=== PATIENT | male | born 1935 | race Two or more races ===

== ENCOUNTER 2016-09-29 11:42 | Inpatient (IN) | payer MEDICARE, OTHER ==
[~2016-09-29] VITALS: Ht 162.6 cm; Wt 68.0 kg
[~2016-09-29 11:42] MED LIST: ADVAIR 250-501 EACH INH; AMBIEN10 M1 ORAL; COLACE100 MG ORAL; CRESTOR10 M1 ORAL; CYCLOBENZAPRINE10 MG ORAL; DIOVAN80 MG ORAL; GABAPENTIN100 MG ORAL; INDERAL10 MG ORAL; JANUVIA100 MG ORAL; LACTULOSE20 GM/301 PO; LANTUS SOL100 UNIT/1 SUBQ; METFORMIN HCL1000 M1 ORAL; PANTOPRAZOLE SO20 MG ORAL; PRADAXA150 MG ORAL; PROAIR HFA8.5 GM INH; RAPAFLO-PATIENT'1 EA PO; TAMSULOSIN HCL0.4 MG ORAL; VICODIN 5-5001 EACH ORAL
[2016-09-29] MEDS ORDERED: PANTOPRAZOLE SO40 MG ORAL (12:16)
[2016-09-29 12:30] VITALS: BP 114/57
[2016-09-29 14:37] LABS: BASOPHILS % (AUTO) 1.5 % (0.0-2.0); EOSINOPHILS % (AUTO) 0.1 % (0.0-3.0); MEAN CORPUSCULAR HEMOGLOBIN 33.2 PG (27.0-31.0); MEAN CORPUSCULAR HGB CONC 31.9 G/DL (32.0-36.0); MEAN CORPUSCULAR VOLUME 104 FL (80-99); MEAN PLATELET VOLUME 8.1 FL (6.5-10.1); MONOCYTES % (AUTO) 6.6 % (1.0-10.0); NEUTROPHILS % (AUTO) 78.9 % (45.0-75.0); PLATELET COUNT 175 K/UL (150-450); RED BLOOD COUNT 3.01 M/UL (4.70-6.10); RED CELL DISTRIBUTION WIDTH 14.7 % (11.6-14.8); WHITE BLOOD COUNT 8.9 K/UL (4.8-10.8)
[2016-09-29 14:58] LABS: ALANINE AMINOTRANSFERASE 27 U/L (3-41); ALBUMIN/GLOBULIN RATIO 0.3 (1.0-2.7); ANION GAP 22 (5-15); ASPARTATE AMINO TRANSFERASE 58 U/L (5-40); CALCIUM 8.5 mg/dL (8.6-10.2); CARBON DIOXIDE 16 mEQ/L (20-30); CHLORIDE 94 mEQ/L (98-107); HEMOLYSIS 3; LIPASE 52 U/L (< 60); SODIUM 132 mEQ/L (135-145)
--- NOTE | 2016-09-29 15:09 | Emergency Room Report ---
History of Present Illness General Chief Complaint: Abdominal Pain Source: Patient, Family Member Present Illness HPI Patient presents with complaints of increased abdominal distention Mild increased shortness of breath Patient's son is here providing most of the input reported the patient had fluid drainage 2-3 months ago Denies any vomiting or diarrhea denies any fevers or chills He provides information that the patient has liver cancer However cannot give me the specific disease Patient and son deny any dark stools denies any recent travel or trauma Given the increased distention there were concerned and presents to the ER Allergies: Coded Allergies: No Known Allergies (Verified , 03/16/11) Patient History Past Medical History: see triage record Pertinent Family History: none Reviewed Nursing Documentation: PMH: Agreed, PSxH: Agreed Nursing Documentation-PMH Hx Cardiac Problems: Yes - ATRIAL FIBRILLATION Hx Hypertension: Yes Hx Asthma: Yes Hx COPD: Yes Hx Diabetes: Yes Hx Cancer: Yes - Liver cancer Hx Gastrointestinal Problems: Yes Hx Neurological Problems: No Review of Systems All Other Systems: negative except mentioned in HPI Physical Exam Vital Signs Date Time Temp Pulse Resp B/P Pulse Ox O2 Delivery O2 Flow Rate FiO2 09/29/16 12:06 95.5 86 16 82/52 98 Room Air Sp02 EP Interpretation: reviewed, normal General Appearance: no apparent distress Head: normocephalic, atraumatic Eyes: bilateral eye EOMI, bilateral eye PERRL ENT: hearing grossly normal, normal pharynx, TMs + canals normal, uvula midline Neck: full range of motion, supple, no meningismus, no bony tend Respiratory: no rhonchi, no respiratory distress, no retraction, no accessory muscle use, crackles - in lower lobes Cardiovascular #1: normal peripheral pulses, regular rate, rhythm, no gallop, no JVD, no murmur Gastrointestinal: non tender, no mass, no guarding, no hernia, no pulsatile mass, no rebound, other - Evidence of ascites Genitourinary: no CVA tenderness Musculoskeletal: normal inspection Neurologic: oriented x3, responsive, aerial photographer III-XII nml as tested, motor strength/ tone normal, sensory intact Psychiatric: mood/affect normal Skin: no rash, warm/dry, palpation normal Lymphatic: normal inspection, no adenopathy Medical Decision Making Diagnostic Impression: Primary Impression: Liver masses Additional Impressions: Cirrhosis, alcoholic Renal insufficiency ER Course Patient appears to have 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 There is evidence of increased ascites patient is somewhat symptomatic with this Ultrasound-guided paracentesis was ordered upon arrival Patient continues to saturate well and at this time requires admission for further care Patient's kidney function appears to have significantly worsened with increased potassium And BUN and creatinine Labs Test 09/29/16 14:20 White Blood Count 8.9 K/UL (4.8-10.8) Red Blood Count 3.01 M/UL (4.70-6.10) Hemoglobin 10.0 G/DL (14.2-18.0) Hematocrit 31.3 % (42.0-52.0) Mean Corpuscular Volume 104 FL (80-99) Mean Corpuscular Hemoglobin 33.2 PG (27.0-31.0) Mean Corpuscular Hemoglobin Concent 31.9 G/DL (32.0-36.0) Red Cell Distribution Width 14.7 % (11.6-14.8) Platelet Count 175 K/UL (150-450) Mean Platelet Volume 8.1 FL (6.5-10.1) Neutrophils (%) (Auto) 78.9 % (45.0-75.0) Lymphocytes (%) (Auto) 13.0 % (20.0-45.0) Monocytes (%) (Auto) 6.6 % (1.0-10.0) Eosinophils (%) (Auto) 0.1 % (0.0-3.0) Basophils (%) (Auto) 1.5 % (0.0-2.0) Sodium Level 132 mEQ/L (135-145) Potassium Level 5.0 mEQ/L (3.4-4.9) Chloride Level 94 mEQ/L (98-107) Carbon Dioxide Level 16 mEQ/L (20-30) Anion Gap 22 (5-15) Blood Urea Nitrogen 83 mg/dL (7-23) Creatinine 4.0 mg/dL (0.7-1.2) Estimat Glomerular Filtration Rate mL/min (>60) Glucose Level 119 mg/dL (74-106) Calcium Level 8.5 mg/dL (8.6-10.2) Total Bilirubin 2.3 mg/dL (0.0-1.2) Aspartate Amino Transf (AST/SGOT) 58 U/L (5-40) Alanine Aminotransferase (ALT/SGPT) 27 U/L (3-41) Alkaline Phosphatase 255 U/L (40-129) Total Protein 8.0 g/dL (6.6-8.7) Albumin 1.9 g/dL (3.5-5.2) Globulin 6.1 g/dL Albumin/Globulin Ratio 0.3 (1.0-2.7) Lipase 52 U/L (< 60) Rhythm Strip Diag. Results EP Interpretation: yes Rate: 77 Rhythm: NSR, no PVC's, no ectopy Chest X-Ray Diagnostic Results EP Interpretation: Yes Findings: no consolidation, no effusion, no pneumothorax Number of Views: 1 Last Vital Signs Date Time Temp Pulse Resp B/P Pulse Ox O2 Delivery O2 Flow Rate FiO2 09/29/16 12:30 98.0 80 16 114/57 98 Room Air Status: improved Disposition: ADMITTED INPATIENT Condition: Serious Referrals: NON PHYSICIAN (PCP) Additional Instructions: Please note that this report is being documented using [employer] technology. This can lead to erroneous entry secondary to incorrect interpretation by the dictating instrument. SIRI STERN D.O. Sep 29, 2016 15:09
[2016-09-29 15:13] LABS: BILIRUBIN,DIRECT 1.4 mg/dL (0.1-0.3)
[2016-09-29] MEDS ORDERED: Sodium Polystyrene Sulfonate 15gm Powder ORAL ONE (15:15)
[2016-09-29 15:16] LABS: INR 1.3 (0.9-1.1); PROTHROMBIN TIME 13.4 SEC (9.30-11.50)
--- NOTE | 2016-09-29 15:26 | History & Physical ---
History and Physical History & Physicial Case was discussed with ER physician. chart was reviewed. Pt is getting a paracentesis. full note will follow. Orders were put in the computer. MASON REECE Sep 29, 2016 15:26
[2016-09-29 15:47] VITALS: BP 104/68
[2016-09-29 17:00] VITALS: BP 73/54
[2016-09-29] MEDS ORDERED: Mylanta II UD 30ml ORAL PRN (17:30)
[2016-09-29] MEDS ORDERED: Zolpidem 5mg tab ORAL PRN (17:30)
[2016-09-29] MEDS ORDERED: Norco 5mg/325mg tab ORAL PRN (17:30)
[2016-09-29] MEDS ORDERED: Milk of Magnesia 30ml Ud ORAL PRN (17:30)
[2016-09-29] MEDS: Docusate 100mg cap ORAL SCH (18:12)
[2016-09-29 19:00] VITALS: BP 110/66
[2016-09-29 20:44] LABS: APPEARANCE, BODY FLUID HAZY; BD FL SOURCE PARACENTESIS; BD FL VOLUME 24 mL
[2016-09-29 20:45] LABS: BODY FLUID NUCLEATED CELLS 56 /CUMM; BODY FLUID RBC 300 /CUMM; MONONUCLEAR WBC 53 %; POLYMORPHONUCLEAR WBC 44 %
[2016-09-29] MEDS: Tamsulosin 0.4mg cap ORAL SCH (21:00)
[2016-09-29] MEDS: NovoLOG Insulin Flexpen SUBQ SCH (21:00)
[2016-09-29] MEDS: Propranolol 10mg tab ORAL SCH (21:51)
--- NOTE | 2016-09-29 23:49 | History and Physical Report ---
DATE OF ADMISSION: 09/29/2016 HISTORY OF PRESENT ILLNESS: The patient is an unfortunate 81-year-old male with history of hepatocellular carcinoma, history of cirrhosis, and history of ascites who presented to the emergency room with complaints of increased abdominal girth occurring over the past week and increased shortness of breath as a result. He denies any chest pain. No cough. No fevers or chills. The patient resides at home. His son is his caregiver. The patient has had difficulty walking over the past week. PAST MEDICAL HISTORY: History of cirrhosis, history of hemorrhoids, history of colonic polyps, history of atrial fibrillation, history of diabetes, history of BPH, and history of hypertension. ALLERGIES: No known. FAMILY HISTORY: No history of liver cancer in the family. SOCIAL HISTORY: The patient used to be a smoker and also drank alcohol. Denies any drug use. REVIEW OF SYSTEMS: No headaches. No sore throat. He admits to decreased appetite, generalized weakness, fatigue, and difficulty ambulating over the past week. Further review of systems as per above. PHYSICAL EXAMINATION: GENERAL: He is an elderly chronically ill-appearing, currently in no apparent distress. VITAL SIGNS: Blood pressure 114/57, respirations 16, temperature 98, and room air saturations 98%. HEENT: Head is normocephalic and atraumatic. Pupils are equal and reactive to light. Extraocular muscles are intact. Conjunctiva slightly pale. Throat, mucous membranes are dry. LUNGS: Clear to auscultation. HEART: Irregularly irregular. ABDOMEN: Distended. Positive bowel sounds. EXTREMITIES: No clubbing, cyanosis, or edema. LABORATORY DATA: Sodium 132, potassium 5.0, chloride 94, BUN 83, creatinine 4.0, glucose 119, total bilirubin 2.3, and direct 1.4. AST ____, ALT of 27, alkaline phosphatase 255, and albumin 1.9. White count 8.9, hemoglobin 10, hematocrit 31.3, and platelet count 175,000. INR 1.2 and PTT is 32. ASSESSMENT AND PLAN: The patient is an unfortunate 81-year-old male with hepatocellular carcinoma, cirrhosis, and ascites presents with increased abdominal girth, difficulty ambulating, some shortness of breath, also had renal failure. The patient will be admitted. He will need to undergo paracentesis. Gastrointestinal consultation requested from Dr. Galvan, covering for Dr. Rivera. Nephrology consultation has been requested from ____. We will also get lower extremity Dopplers on him. Placed him on SCDs for now. The patient should be on DVT and ulcer prophylaxis. Jeff Lockhart M.D. DR: BARBY JOB#: [id number] CC:
[2016-09-30] VITALS (10 sets, daily range): BP systolic 77–126; BP diastolic 44–82
[2016-09-30] MEDS: Propranolol 10mg tab ORAL SCH ×3 (05:59→22:00)
[2016-09-30] MEDS: NovoLOG Insulin Flexpen SUBQ SCH ×4 (06:30→20:50)
[2016-09-30 07:36] LABS: BASOPHILS % (AUTO) 0.8 % (0.0-2.0); EOSINOPHILS % (AUTO) 0.1 % (0.0-3.0); LYMPHOCYTES % (AUTO) 8.6 % (20.0-45.0); MEAN CORPUSCULAR HEMOGLOBIN 33.5 PG (27.0-31.0); MEAN CORPUSCULAR HGB CONC 31.8 G/DL (32.0-36.0); MEAN CORPUSCULAR VOLUME 106 FL (80-99); MEAN PLATELET VOLUME 7.9 FL (6.5-10.1); MONOCYTES % (AUTO) 8.6 % (1.0-10.0); NEUTROPHILS % (AUTO) 81.9 % (45.0-75.0); PLATELET COUNT 161 K/UL (150-450); RED BLOOD COUNT 3.01 M/UL (4.70-6.10); RED CELL DISTRIBUTION WIDTH 14.7 % (11.6-14.8); WHITE BLOOD COUNT 9.5 K/UL (4.8-10.8)
[2016-09-30 07:55] LABS: INR 1.4 (0.9-1.1); PROTHROMBIN TIME 13.9 SEC (9.30-11.50)
[2016-09-30 08:00] LABS: ANION GAP 20 (5-15); CARBON DIOXIDE 17 mEQ/L (20-30); CHLORIDE 96 mEQ/L (98-107); CREATININE 4.3 mg/dL (0.7-1.2); HEMOLYSIS 2; PHOSPHORUS 7.2 mg/dL (2.5-4.8); POTASSIUM 5.1 mEQ/L (3.4-4.9); SODIUM 133 mEQ/L (135-145)
[2016-09-30] MEDS: Docusate 100mg cap ORAL SCH ×2 (08:47→18:00)
[2016-09-30] MEDS ORDERED: NS 250 ML IVPB ONE (11:00)
[2016-09-30] MEDS ORDERED: NS 250 ML IVPB SCH (11:45)
--- NOTE | 2016-09-30 11:53 | Diagnostic Imaging Report ---
Indication: Chest pain Technique: XRAY CHEST 1 V Comparison: 08/08/16 Findings: Cardiomediastinal silhouette is stable. 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 There is no consolidation or pleural effusion. The osseous structures are stable. Impression: No acute cardiopulmonary disease.
--- NOTE | 2016-09-30 12:32 | Consultation ---
History of Present Illness General Date patient seen: Sep 30, 2016 Chief Complaint: Abdominal Pain Referring physician: Dr. OLIVEIRA Reason for Consultation: dypsnea Present Illness HPI 81 Year old male with hx of Hepatocellular cancer, liver cirrhosis, presented to [facility] with increased abdominal girth, dyspnea Patient's son was in ER providing most of the input, reported the patient had fluid drainage 2-3 months ago Denies any vomiting or diarrhea denies any fevers or chills. Pt is admitted for symptomatic treatment. I was asked to optimize his respiratory status. Allergies: Coded Allergies: No Known Allergies (Verified , 03/16/11) Medication History Scheduled Albuterol Sulfate* (Proair Hfa*), 1 PUFF INH Q6H, (Reported) Cyclobenzaprine Hcl* (Flexeril*), 10 MG ORAL THREE TIMES A DAY, (Reported) Fluticasone/Salmeterol (Advair 250-50 Diskus), 1 PUFF INH EVERY 12 HOURS, ( Reported) Gabapentin* (Gabapentin*), 300 MG ORAL BID, (Reported) Insulin Glargine (Lantus), 20 SUBQ BID, (Reported) Pantoprazole (Pantoprazole), 20 MG ORAL EVERY 12 HOURS Pantoprazole* (Pantoprazole*), 40 MG ORAL DAILY, (Reported) Propranolol HCl (Propranolol HCl), 10 MG ORAL Q8HR Silodusin (Rapaflo), 4 MG PO DAILY, (Reported) Tamsulosin Hcl (Tamsulosin Hcl*), 0.4 MG ORAL BEDTIME, (Reported) Scheduled PRN Zolpidem Tartrate* (Ambien*), 10 MG ORAL HS PRN for Insomnia, (Reported) Patient History Healthcare decision maker Resuscitation status Advanced Directive on File Past Medical/Surgical History Past Medical/Surgical History: (1) Cirrhosis, alcoholic (2) Liver masses Review of Systems All Other Systems: negative except mentioned in HPI Physical Exam General Appearance: WD/WN Lines, tubes and drains: peripheral, central line HEENT: normocephalic Neck: non-tender, normal alignment Respiratory/Chest: chest wall non-tender, normal breath sounds Cardiovascular/Chest: normal peripheral pulses, normal rate Abdomen: normal bowel sounds, non tender Genitourinary/Rectal: normal genital exam, normal rectal exam Last 24 Hour Vital Signs Date Time Temp Pulse Resp B/P Pulse Ox O2 Delivery O2 Flow Rate FiO2 09/30/16 11:36 97.6 96 20 84/52 95 Room Air 09/30/16 07:44 97.5 59 20 91/47 96 Room Air 09/30/16 05:59 85 93/49 09/30/16 05:00 93/51 09/30/16 04:00 96.0 85 20 93/49 95 Room Air 09/30/16 01:00 90/54 09/30/16 00:00 95.5 85 20 83/55 93 Room Air 09/29/16 22:48 98.0 09/29/16 21:51 77 110/66 09/29/16 19:00 98.0 77 18 110/66 98 Room Air 09/29/16 17:00 96.0 89 20 73/54 98 Room Air 89 09/29/16 16:36 98.0 80 16 104/68 98 Room Air 79 09/29/16 15:47 98.0 79 16 104/68 98 Room Air 09/29/16 12:30 98.0 80 16 114/57 98 Room Air Intake and Output 09/29/16 09/30/16 18:59 06:59 Intake Total 1060 ml Balance 1060 ml Intake Oral 60 ml IV Total 1000 ml # Voids 1 4 # Bowel Movements 2 Laboratory Tests Test 09/29/16 14:20 09/29/16 16:53 09/30/16 06:20 White Blood Count 8.9 K/UL (4.8-10.8) 9.5 K/UL (4.8-10.8) Red Blood Count 3.01 M/UL (4.70-6.10) L 3.01 M/UL (4.70-6.10) L Hemoglobin 10.0 G/DL (14.2-18.0) L 10.1 G/DL (14.2-18.0) L Hematocrit 31.3 % (42.0-52.0) L 31.7 % (42.0-52.0) L Mean Corpuscular Volume 104 FL (80-99) H 106 FL (80-99) H Mean Corpuscular Hemoglobin 33.2 PG (27.0-31.0) H 33.5 PG (27.0-31.0) H Mean Corpuscular Hemoglobin Concent 31.9 G/DL (32.0-36.0) L 31.8 G/DL (32.0-36.0) L Red Cell Distribution Width 14.7 % (11.6-14.8) 14.7 % (11.6-14.8) Platelet Count 175 K/UL (150-450) 161 K/UL (150-450) Mean Platelet Volume 8.1 FL (6.5-10.1) 7.9 FL (6.5-10.1) Neutrophils (%) (Auto) 78.9 % (45.0-75.0) H 81.9 % (45.0-75.0) H Lymphocytes (%) (Auto) 13.0 % (20.0-45.0) L 8.6 % (20.0-45.0) L Monocytes (%) (Auto) 6.6 % (1.0-10.0) 8.6 % (1.0-10.0) Eosinophils (%) (Auto) 0.1 % (0.0-3.0) 0.1 % (0.0-3.0) Basophils (%) (Auto) 1.5 % (0.0-2.0) 0.8 % (0.0-2.0) Prothrombin Time 13.4 SEC (9.30-11.50) H 13.9 SEC (9.30-11.50) H Prothromb Time International Ratio 1.3 (0.9-1.1) H 1.4 (0.9-1.1) H Activated Partial Thromboplast Time 32 SEC (23-33) 36 SEC (23-33) H Sodium Level 132 mEQ/L (135-145) L 133 mEQ/L (135-145) L Potassium Level 5.0 mEQ/L (3.4-4.9) H 5.1 mEQ/L (3.4-4.9) H Chloride Level 94 mEQ/L (98-107) L 96 mEQ/L (98-107) L Carbon Dioxide Level 16 mEQ/L (20-30) L 17 mEQ/L (20-30) L Anion Gap 22 (5-15) H 20 (5-15) H Blood Urea Nitrogen 83 mg/dL (7-23) H 86 mg/dL (7-23) H Creatinine 4.0 mg/dL (0.7-1.2) H 4.3 mg/dL (0.7-1.2) H Estimat Glomerular Filtration Rate mL/min (>60) mL/min (>60) Glucose Level 119 mg/dL (74-106) H 115 mg/dL (74-106) H Calcium Level 8.5 mg/dL (8.6-10.2) L 8.0 mg/dL (8.6-10.2) L Total Bilirubin 2.3 mg/dL (0.0-1.2) H Direct Bilirubin 1.4 mg/dL (0.1-0.3) H Aspartate Amino Transf (AST/SGOT) 58 U/L (5-40) H Alanine Aminotransferase (ALT/SGPT) 27 U/L (3-41) Alkaline Phosphatase 255 U/L (40-129) H Total Protein 8.0 g/dL (6.6-8.7) Albumin 1.9 g/dL (3.5-5.2) L Globulin 6.1 g/dL Albumin/Globulin Ratio 0.3 (1.0-2.7) L Lipase 52 U/L (< 60) Body Fluid Source Paracentesis Body Fluid Volume 24 mL Body Fluid Appearance Hazy Body Fluid RBC 300 /CUMM Body Fluid Total Nucleated Cells 56 /CUMM Body Fluid Polynuclear WBCs (%) 44 % Body Fluid Mononuclear WBCs (%) 53 % Body Fluid Mesothelial Cells (%) 3 % Body Fluid Total Protein Pending Body Fluid Albumin Pending Phosphorus Level 7.2 mg/dL (2.5-4.8) H Magnesium Level 2.5 mg/dL (1.7-2.5) Ammonia 41 umol/L (16-60) Thyroid Stimulating Hormone (TSH) 3.520 uIU/mL (0.300-4.500) Height (Feet): 5 Height (Inches): 4.00 Weight (Pounds): 150 Medications Current Medications Medications (Trade) Dose Ordered Sig/Garcia Route PRN Reason Start Time Stop Time Status Last Admin Dose Admin Acetaminophen (Tylenol) 650 mg Q6H PRN ORAL Mild Pain/Temp > 100.5 09/29/16 17:30 10/29/16 17:29 Acetaminophen/ Hydrocodone Bitart ([place] 5/325) 1 tab Q6H PRN ORAL Moderate Pain (Pain Scale 4-6) 09/29/16 17:30 10/06/16 17:29 09/29/16 21:46 Al Hydroxide/Mg Hydroxide (Mylanta II) 30 ml DAILYPRN PRN ORAL DYSPEPsia 09/29/16 17:30 10/29/16 17:29 Dextrose (Dextrose 50%) STAT PRN IV Hypoglycemia 09/29/16 17:30 10/29/16 17:29 Docusate Sodium (Colace) 100 mg TWICE A DAY ORAL 09/29/16 18:00 10/29/16 17:59 09/30/16 08:47 Insulin Aspart (NovoLOG) BEFORE MEALS AND HS SUBQ 09/29/16 21:00 10/29/16 20:59 09/30/16 11:46 Magnesium Hydroxide (Mom) 30 ml DAILYPRN PRN ORAL Constipation 09/29/16 17:30 10/29/16 17:29 Propranolol HCl 10 mg 10 mg Q8HR ORAL 09/29/16 22:00 10/29/16 21:59 Sodium Chloride (Sodium Chloride) 250 ml @ 998.89 mls/ hr ONCE IVPB 09/30/16 11:45 10/30/16 11:44 09/30/16 11:44 Tamsulosin HCl (Flomax) 0.4 mg BEDTIME ORAL 09/29/16 21:00 10/29/16 20:59 Zolpidem Tartrate (Ambien) 5 mg HSPRN PRN ORAL Insomnia 09/29/16 17:30 10/29/16 17:29 Assessment/Plan Problem List: (1) Dyspnea ICD Codes: R06.00 - Dyspnea, unspecified SNOMED: 099107570 (2) Cancer, hepatocellular ICD Codes: C22.0 - Liver cell carcinoma SNOMED: 28430871, 443056553, 316556601 (3) Ascites ICD Codes: R18.8 - Other ascites SNOMED: 968577710 (4) ATN (acute tubular necrosis) ICD Codes: N17.0 - Acute kidney failure with tubular necrosis SNOMED: 53356852 (5) Coagulopathy ICD Codes: D68.9 - Coagulation defect, unspecified SNOMED: 65390780 Assessment/Plan paracentesis, done yesterd, 7 liter removed respiratory treatment iv fluids check electrolytes Vitamin K consider DNR and hospice care MONTEZ CAN Sep 30, 2016 12:32
[2016-09-30] MEDS: DuoNeb 0.5-3(2.5)mg/3ml neb HHN SCH ×2 (13:20→19:27)
[2016-09-30] MEDS ORDERED: Phytonadione 10 MG in D5W 55 ML IVPB ONE (13:30)
--- NOTE | 2016-09-30 14:36 | Nephrology Progress Note ---
Assessment/Plan Problem List: (1) Renal insufficiency Assessment: no change (2) Anemia (3) Cancer, hepatocellular (4) Ascites Plan Urine studies (not done) IVF follow BMP Discussed with RN Subjective Subjective feels better Objective Objective Last 24 Hour Vital Signs Date Time Temp Pulse Resp B/P Pulse Ox O2 Delivery O2 Flow Rate FiO2 09/30/16 13:29 84 20 95/56 09/30/16 12:32 112 20 90/54 95 Nasal Cannula 09/30/16 11:36 97.6 96 20 84/52 95 Room Air 09/30/16 07:44 97.5 59 20 91/47 96 Room Air 09/30/16 05:59 85 93/49 09/30/16 05:00 93/51 09/30/16 04:00 96.0 85 20 93/49 95 Room Air 09/30/16 01:00 90/54 09/30/16 00:00 95.5 85 20 83/55 93 Room Air 09/29/16 22:48 98.0 09/29/16 21:51 77 110/66 09/29/16 19:00 98.0 77 18 110/66 98 Room Air 09/29/16 17:00 96.0 89 20 73/54 98 Room Air 89 09/29/16 16:36 98.0 80 16 104/68 98 Room Air 79 09/29/16 15:47 98.0 79 16 104/68 98 Room Air Intake and Output 09/29/16 09/30/16 19:00 07:00 Intake Total 250 ml 810 ml Balance 250 ml 810 ml Intake Oral 60 ml IV Total 250 ml 750 ml # Voids 1 4 # Bowel Movements 2 Laboratory Tests 09/29/16 16:53: Body Fluid Source Paracentesis, Body Fluid Volume 24, Body Fluid Appearance Hazy , Body Fluid RBC 300, Body Fluid Total Nucleated Cells 56, Body Fluid Polynuclear WBCs (%) 44, Body Fluid Mononuclear WBCs (%) 53, Body Fluid Mesothelial Cells (%) 3, Body Fluid Total Protein [Pending], Body Fluid Albumin [Pending] 09/30/16 06:20: White Blood Count 9.5, Red Blood Count 3.01L, Hemoglobin 10.1L, Hematocrit 31.7L , Mean Corpuscular Volume 106H, Mean Corpuscular Hemoglobin 33.5H, Mean Corpuscular Hemoglobin Concent 31.8L, Red Cell Distribution Width 14.7, Platelet Count 161, Mean Platelet Volume 7.9, Neutrophils (%) (Auto) 81.9H, Lymphocytes (%) (Auto) 8.6L, Monocytes (%) (Auto) 8.6, Eosinophils (%) (Auto) 0.1, Basophils (%) (Auto) 0.8, Prothrombin Time 13.9H, Prothromb Time International Ratio 1.4H, Activated Partial Thromboplast Time 36H, Sodium Level 133L, Potassium Level 5.1H, Chloride Level 96L, Carbon Dioxide Level 17L, Anion Gap 20H, Blood Urea Nitrogen 86H, Creatinine 4.3H, Estimat Glomerular Filtration Rate , Glucose Level 115H, Calcium Level 8.0L, Phosphorus Level 7.2H , Magnesium Level 2.5, Ammonia 41, Thyroid Stimulating Hormone (TSH) 3.520 Height (Feet): 5 Height (Inches): 4.00 Weight (Pounds): 150 Cardiovascular: normal rate Respiratory/Chest: lungs clear Extremities: other - no edema MASON REECE Sep 30, 2016 14:36
[2016-09-30 18:07] LABS: PROTEIN, BODY FLUID 1.1 g/dL (.)
--- NOTE | 2016-09-30 19:54 | General Progress Note ---
Assessment/Plan Assessment/Plan HCC ascites renal failure hypotension sob htn ho afib sp paracentesis montior renal parameters,? azotemia nephrology fup will get cxr, have pulmonary see patient dvt ulcer porhylaxis PT eval ambulate will likely need snf Subjective Allergies: Coded Allergies: No Known Allergies (Verified , 03/16/11) Subjective sp paracentesis 7 liter removed more comfortabl some sob no cp Objective Last 24 Hour Vital Signs Date Time Temp Pulse Resp B/P Pulse Ox O2 Delivery O2 Flow Rate FiO2 09/30/16 19:30 101 18 100 Room Air 09/30/16 19:22 106 18 Room Air 09/30/16 19:20 96 18 96 Room Air 09/30/16 16:00 97.6 72 19 126/82 100 09/30/16 14:37 91 16 100 Room Air 09/30/16 13:29 84 20 95/56 09/30/16 13:20 89 16 Room Air 21 09/30/16 12:32 112 20 90/54 95 Nasal Cannula 09/30/16 11:36 97.6 96 20 84/52 95 Room Air 09/30/16 07:44 97.5 59 20 91/47 96 Room Air 09/30/16 05:59 85 93/49 09/30/16 05:00 93/51 09/30/16 04:00 96.0 85 20 93/49 95 Room Air 09/30/16 01:00 90/54 09/30/16 00:00 95.5 85 20 83/55 93 Room Air 09/29/16 22:48 98.0 09/29/16 21:51 77 110/66 Intake and Output 09/29/16 09/30/16 19:00 07:00 Intake Total 250 ml 810 ml Balance 250 ml 810 ml Intake Oral 60 ml IV Total 250 ml 750 ml # Voids 1 4 # Bowel Movements 2 Laboratory Tests 09/30/16 06:20: White Blood Count 9.5, Red Blood Count 3.01L, Hemoglobin 10.1L, Hematocrit 31.7L , Mean Corpuscular Volume 106H, Mean Corpuscular Hemoglobin 33.5H, Mean Corpuscular Hemoglobin Concent 31.8L, Red Cell Distribution Width 14.7, Platelet Count 161, Mean Platelet Volume 7.9, Neutrophils (%) (Auto) 81.9H, Lymphocytes (%) (Auto) 8.6L, Monocytes (%) (Auto) 8.6, Eosinophils (%) (Auto) 0.1, Basophils (%) (Auto) 0.8, Prothrombin Time 13.9H, Prothromb Time International Ratio 1.4H, Activated Partial Thromboplast Time 36H, Sodium Level 133L, Potassium Level 5.1H, Chloride Level 96L, Carbon Dioxide Level 17L, Anion Gap 20H, Blood Urea Nitrogen 86H, Creatinine 4.3H, Estimat Glomerular Filtration Rate , Glucose Level 115H, Plasma/Serum Osmolality [Pending], Calcium Level 8.0L, Phosphorus Level 7.2H, Magnesium Level 2.5, Ammonia 41, Thyroid Stimulating Hormone (TSH) 3.520, Cortisol [Pending] Height (Feet): 5 Height (Inches): 4.00 Weight (Pounds): 150 Neck: supple Cardiovascular: normal rate Respiratory/Chest: decreased breath sounds Abdomen: soft Edema: no edema noted Arm (L), no edema noted Arm (R), no edema noted Leg (L), no edema noted Leg (R), no edema noted Pedal (L), no edema noted Pedal (R), no edema noted Generalized Objective abdomen soft distended pos bs pos ascited but improved CHAPIS OLIVEIRA Sep 30, 2016 19:54
[2016-09-30] MEDS ORDERED: NS 100 ML IVPB ONE (20:15)
[2016-09-30] MEDS: Tamsulosin 0.4mg cap ORAL SCH (20:43)
[2016-09-30] MEDS ORDERED: Midodrine 10mg tab ORAL SCH (21:00)
--- NOTE | 2016-09-30 21:10 | General Progress Note ---
Assessment/Plan Assessment/Plan Assessment - multifocal HCC - Ascites - Cirrhosis - Renal failure - Poor Px Recommendations - PRN paracentesis - Agree with SNF - Code status Subjective Allergies: Coded Allergies: No Known Allergies (Verified , 03/16/11) Objective Last 24 Hour Vital Signs Date Time Temp Pulse Resp B/P Pulse Ox O2 Delivery O2 Flow Rate FiO2 09/30/16 19:30 101 18 100 Room Air 09/30/16 19:22 106 18 Room Air 09/30/16 19:20 96 18 96 Room Air 09/30/16 16:00 97.6 72 19 126/82 100 09/30/16 14:37 91 16 100 Room Air 09/30/16 13:29 84 20 95/56 09/30/16 13:20 89 16 Room Air 21 09/30/16 12:32 112 20 90/54 95 Nasal Cannula 09/30/16 11:36 97.6 96 20 84/52 95 Room Air 09/30/16 07:44 97.5 59 20 91/47 96 Room Air 09/30/16 05:59 85 93/49 09/30/16 05:00 93/51 09/30/16 04:00 96.0 85 20 93/49 95 Room Air 09/30/16 01:00 90/54 09/30/16 00:00 95.5 85 20 83/55 93 Room Air 09/29/16 22:48 98.0 09/29/16 21:51 77 110/66 Intake and Output 09/29/16 09/30/16 19:00 07:00 Intake Total 250 ml 810 ml Balance 250 ml 810 ml Intake Oral 60 ml IV Total 250 ml 750 ml # Voids 1 4 # Bowel Movements 2 Laboratory Tests 09/30/16 06:20: White Blood Count 9.5, Red Blood Count 3.01L, Hemoglobin 10.1L, Hematocrit 31.7L , Mean Corpuscular Volume 106H, Mean Corpuscular Hemoglobin 33.5H, Mean Corpuscular Hemoglobin Concent 31.8L, Red Cell Distribution Width 14.7, Platelet Count 161, Mean Platelet Volume 7.9, Neutrophils (%) (Auto) 81.9H, Lymphocytes (%) (Auto) 8.6L, Monocytes (%) (Auto) 8.6, Eosinophils (%) (Auto) 0.1, Basophils (%) (Auto) 0.8, Prothrombin Time 13.9H, Prothromb Time International Ratio 1.4H, Activated Partial Thromboplast Time 36H, Sodium Level 133L, Potassium Level 5.1H, Chloride Level 96L, Carbon Dioxide Level 17L, Anion Gap 20H, Blood Urea Nitrogen 86H, Creatinine 4.3H, Estimat Glomerular Filtration Rate , Glucose Level 115H, Plasma/Serum Osmolality [Pending], Calcium Level 8.0L, Phosphorus Level 7.2H, Magnesium Level 2.5, Ammonia 41, Thyroid Stimulating Hormone (TSH) 3.520, Cortisol [Pending] Height (Feet): 5 Height (Inches): 4.00 Weight (Pounds): 150 STEPHANIE PATHAK Sep 30, 2016 21:10
--- NOTE | 2016-09-30 22:49 | Consultation ---
DATE OF CONSULTATION: 09/29/2016 NEPHROLOGY CONSULTATION: REASON FOR CONSULTATION: Renal failure. HISTORY OF PRESENT ILLNESS: This is an 81-year-old male, who has a history of hepatocellular carcinoma, liver cirrhosis, and ascites. The patient was admitted with shortness of breath. I was asked to see him because of elevation of BUN and creatinine, which were 83 and 4.0 upon admission. PAST MEDICAL HISTORY: The patient has a history of hemorrhoids, colonic polyps, atrial fibrillation, diabetes mellitus, BPH, and hypertension. MEDICATIONS: Reviewed in the EMR. ALLERGIES: No known drug allergies. SOCIAL HISTORY: Previous of smoking. Also alcohol abuse. REVIEW OF SYSTEMS: Poor appetite, weakness, fatigue, and difficulty ambulating. PHYSICAL EXAMINATION: GENERAL: The patient is an elderly male, in no acute distress. VITAL SIGNS: Blood pressure 95/56, pulse 84, temperature 97.6 degrees, and respirations 20. HEENT: Pale conjunctivae. Somewhat icteric sclerae. NECK: Supple. LUNGS: Clear to auscultation. HEART: S1 and S2 without murmurs or rubs. ABDOMEN: Soft and distended. EXTREMITIES: No cyanosis or edema. LABORATORY FINDINGS: The chemistry panel shows serum sodium 132, potassium 5, chloride 94, CO2 16, BUN 83, creatinine 4.0, glucose 119, and calcium 8.5. AST 58 and ALT 27. Albumin is 1.9. CBC shows WBC of 8.9, hematocrit 31.3, hemoglobin 10, and and platelet 175,000. ASSESSMENT: This is an 81-year-old male with hepatocellular carcinoma and ascites who was admitted with shortness of breath. The patient was supposed to have a paracentesis. In terms of renal failure, he may have hepatorenal syndrome or acute tubular necrosis. He also may have some underlying chronic kidney disease from his diabetes and hypertension, also because of his age. PLAN: 1. Urine studies will be done including urine sodium, urine creatinine, and urinalysis. 2. I will follow the chemistry panel closely. If the patient's renal function gets significantly worse, he may need dialysis. 3. Case was discussed with the RN. Thank very much. Tobi Hauser M.D. DR: ANISH JOB#: [id number] CC: [place]
[2016-09-30] MEDS ORDERED: Mylanta II UD 30ml ORAL PRN (23:38)
[2016-09-30] MEDS ORDERED: Norco 5mg/325mg tab ORAL PRN (23:39)
[2016-09-30] MEDS ORDERED: Zolpidem 5mg tab ORAL PRN (23:39)
[2016-09-30] MEDS ORDERED: Milk of Magnesia 30ml Ud ORAL PRN (23:39)
[2016-10-01] VITALS: BP 89/61
[2016-10-01] MEDS: DuoNeb 0.5-3(2.5)mg/3ml neb HHN SCH ×4 (01:00→19:35)
[2016-10-01 04:00] VITALS: BP 93/65
[2016-10-01] MEDS ORDERED: Propranolol 10mg tab ORAL SCH (06:00)
[2016-10-01 06:23] LABS: KETONES,URINE NEGATIVE (NEGATIVE); LEUKOCYTE ESTERASE ,URINE 1+ (NEGATIVE); NITRITE,URINE NEGATIVE (NEGATIVE); PH,URINE 5 (4.5-8.0); PROTEIN,URINE 1+ (NEGATIVE); UROBILINOGEN,URINE NORMAL MG/DL (0.0-1.0)
[2016-10-01 06:24] LABS: APPEARANCE,URINE CLEAR
[2016-10-01] MEDS: NovoLOG Insulin Flexpen SUBQ SCH ×4 (06:29→22:23)
[2016-10-01 06:58] LABS: BACTERIA,URINE FEW /HPF; RBC,URINE 0-2 /HPF (0 - 0); SQUAMOUS EPITHELIAL CELL,UR OCCASIONAL /LPF (NONE/OCC)
[2016-10-01 07:08] LABS: MEAN CORPUSCULAR HEMOGLOBIN 33.6 PG (27.0-31.0); MEAN CORPUSCULAR HGB CONC 32.1 G/DL (32.0-36.0); MEAN CORPUSCULAR VOLUME 105 FL (80-99); MEAN PLATELET VOLUME 9.1 FL (6.5-10.1); PLATELET COUNT 169 K/UL (150-450); RED BLOOD COUNT 3.12 M/UL (4.70-6.10); RED CELL DISTRIBUTION WIDTH 14.8 % (11.6-14.8); WHITE BLOOD COUNT 11.2 K/UL (4.8-10.8)
[2016-10-01 07:22] LABS: URIC ACID 11.6 mg/dL (3.0-7.5)
[2016-10-01 07:29] LABS: ALANINE AMINOTRANSFERASE 26 U/L (3-41); ALBUMIN/GLOBULIN RATIO 0.4 (1.0-2.7); ANION GAP 24 (5-15); ASPARTATE AMINO TRANSFERASE 52 U/L (5-40); CALCIUM 8.1 mg/dL (8.6-10.2); CARBON DIOXIDE 14 mEQ/L (20-30); CHLORIDE 96 mEQ/L (98-107); CREATININE 4.1 mg/dL (0.7-1.2); HEMOLYSIS 9; SODIUM 134 mEQ/L (135-145); TOTAL PROTEIN 7.9 g/dL (6.6-8.7)
[2016-10-01 07:30] LABS: FREE T3 1.3 pg/mL (2.3-4.2)
[2016-10-01 07:44] LABS: BILIRUBIN,DIRECT 1.3 mg/dL (0.1-0.3)
[2016-10-01] MEDS: Midodrine 10mg tab ORAL SCH ×3 (08:15→17:43)
[2016-10-01] MEDS: Docusate 100mg cap ORAL SCH ×2 (08:15→17:44)
[2016-10-01 08:19] VITALS: BP 89/64
[2016-10-01 09:56] LABS: ANISOCYTOSIS 1+; BAND NEUTROPHILS % (MANUAL) 2 % (0-8); BASOPHILS % (MANUAL) 0 % (0-2); EOSINOPHILS % (MANUAL) 0 % (0-3); LYMPHOCYTES % (MANUAL) 5 % (20-45); NEUTROPHILS % (MANUAL) 84 % (45-75); PLATELET ESTIMATE ADEQUATE; PLATELET MORPHOLOGY NORMAL; TOTAL CELLS COUNTED 100
[2016-10-01 09:57] LABS: HYPOCHROMASIA 1+; MACROCYTES 1+
--- NOTE | 2016-10-01 10:23 | General Progress Note ---
Assessment/Plan Assessment/Plan HCC ascites renal failure hypotension sob htn ho afib sp paracentesis montior renal parameters,? azotemia nephrology fup iv fluids will get cxr, have pulmonary see patient consult apprecaited dvt ulcer prophylaxis PT eval ambulate will likely need snf will dw son DNR Subjective Allergies: Coded Allergies: No Known Allergies (Verified , 03/16/11) Subjective sp paracentesis 7 liter removed more comfortable decreased sob Objective Last 24 Hour Vital Signs Date Time Temp Pulse Resp B/P Pulse Ox O2 Delivery O2 Flow Rate FiO2 10/01/16 08:19 97.1 104 20 89/64 91 Room Air 10/01/16 07:14 97 Room Air 10/01/16 07:14 Room Air 10/01/16 06:00 96 93/65 10/01/16 04:00 96 10/01/16 04:00 93/65 10/01/16 04:00 97.0 98 20 97 Nasal Cannula 10/01/16 01:25 Room Air 10/01/16 01:25 Room Air 10/01/16 00:00 97 10/01/16 00:00 97.8 67 20 89/61 97 09/30/16 20:00 96.9 82 17 77/44 96 Room Air 09/30/16 19:30 101 18 100 Room Air 09/30/16 19:22 106 18 Room Air 09/30/16 19:20 96 18 96 Room Air 09/30/16 16:00 97.6 72 19 126/82 100 09/30/16 14:37 91 16 100 Room Air 09/30/16 13:29 84 20 95/56 09/30/16 13:20 89 16 Room Air 21 09/30/16 12:32 112 20 90/54 95 Nasal Cannula 09/30/16 11:36 97.6 96 20 84/52 95 Room Air Intake and Output 09/30/16 10/01/16 19:00 07:00 Intake Total 400 ml 845 ml Output Total 350 ml Balance 400 ml 495 ml Intake Oral 350 ml 320 ml IV Total 50 ml 525 ml Output Urine Total 350 ml # Voids 2 # Bowel Movements 3 2 Laboratory Tests 10/01/16 02:30: Urine Color Yellow, Urine Appearance Clear, Urine pH 5, Urine Specific [place] 1.015, Urine Protein 1+H, Urine Glucose (UA) Negative, Urine Ketones Negative, Urine Occult Blood 1+H, Urine Nitrite Negative, Urine Bilirubin Negative, Urine Urobilinogen Normal, Urine Leukocyte Esterase 1+H, Urine RBC 0-2H, Urine WBC 2-4 , Urine Squamous Epithelial Cells Occasional, Urine Bacteria Few, Urine Eosinophils None seen, Urine Osmolality [Pending], Urine Random Sodium < 10, Urine Random Chloride 20, Urine Creatinine 114.8, Urine Potassium Timed 14 10/01/16 04:35: White Blood Count 11.2H, Red Blood Count 3.12L, Hemoglobin 10.5L, Hematocrit 32.6L, Mean Corpuscular Volume 105H, Mean Corpuscular Hemoglobin 33.6H, Mean Corpuscular Hemoglobin Concent 32.1, Red Cell Distribution Width 14.8, Platelet Count 169, Mean Platelet Volume 9.1, Neutrophils (%) (Auto) , Lymphocytes (%) ( Auto) , Monocytes (%) (Auto) , Eosinophils (%) (Auto) , Basophils (%) (Auto) , Differential Total Cells Counted 100, Neutrophils % (Manual) 84H, Lymphocytes % (Manual) 5L, Monocytes % (Manual) 9, Eosinophils % (Manual) 0, Basophils % ( Manual) 0, Band Neutrophils 2, Platelet Estimate Adequate, Platelet Morphology Normal, Hypochromasia 1+, Anisocytosis 1+, Macrocytosis 1+, Sodium Level 134L, Potassium Level 4.0, Chloride Level 96L, Carbon Dioxide Level 14L, Anion Gap 24H , Blood Urea Nitrogen 86H, Creatinine 4.1H, Estimat Glomerular Filtration Rate , Glucose Level 119H, Plasma/Serum Osmolality [Pending], Uric Acid 11.6H, Calcium Level 8.1L, Phosphorus Level 7.0H, Magnesium Level 2.4, Total Bilirubin 2.5H, Direct Bilirubin 1.3H, Aspartate Amino Transf (AST/SGOT) 52H, Alanine Aminotransferase (ALT/SGPT) 26, Alkaline Phosphatase 239H, Total Creatine Kinase 28L, Total Protein 7.9, Albumin 2.4L, Globulin 5.5, Albumin/Globulin Ratio 0.4L, Thyroid Stimulating Hormone (TSH) 4.600H, Free Thyroxine 1.09, Free Triiodothyronine 1.3L, Cortisol [Pending] Height (Feet): 5 Height (Inches): 4.00 Weight (Pounds): 150 Neck: supple Cardiovascular: normal rate Respiratory/Chest: lungs clear Abdomen: soft Edema: no edema noted Arm (L), no edema noted Arm (R), no edema noted Leg (L), no edema noted Leg (R), no edema noted Pedal (L), no edema noted Pedal (R), no edema noted Generalized Objective abdomen soft distended pos bs pos ascited but improved CHAIPS OLIVEIRA Oct 01, 2016 10:23
--- NOTE | 2016-10-01 11:09 | Consultation ---
DATE OF CONSULTATION: 09/30/2016 NOTE: "POOR AUDIO QUALITY" GASTROENTEROLOGY CONSULTATION CHIEF COMPLAINT: I was asked to see this patient by Dr. Jeff Lockhart for evaluation of . HISTORY OF PRESENT ILLNESS: The patient is a debilitated 81-year-old man who was recently diagnosed with multifocal hepatocellular carcinoma, who comes in with ascites. He has undergone paracentesis . The patient is somewhat of a poor historian and most of the information is available from the chart. The patient was seen recently and underwent CT scanning showing and will likely need fci placement. PAST MEDICAL HISTORY: History of hepatocellular carcinoma, ascites, cardiomegaly, degenerative joint disease, hiatal hernia, prostatic hypertrophy, reactive airway disease, diverticulosis, chronic constipation, and diabetes. FAMILY HISTORY: Noncontributory. SOCIAL HISTORY: The patient has had history of alcohol use. REVIEW OF SYSTEMS: Otherwise negative. PHYSICAL EXAMINATION: GENERAL: A debilitated thin man, seen in his room. HEENT: Normocephalic and atraumatic. Sclerae anicteric. Oropharynx clear. NECK: Supple. CHEST: Clear to auscultation. CARDIOVASCULAR: Revealed regular rate. ABDOMEN: Soft. EXTREMITIES: Revealed no edema. LABORATORY DATA: Noted. ASSESSMENT: The patient presents with hepatocellular carcinoma which is multifocal . The patient also has other including renal failure and has ascites. The patient's prognosis is extremely poor and his care should be conservative if he has if the patient can undergo . RECOMMENDATIONS: Per above discussion and per orders written in the chart. Thank you for asking me to participate in the care of this patient. Saskia Galvan M.D. DR: CAROL ANN JOB#: [id number] CC:
[2016-10-01 11:29] VITALS: BP 89/61
--- NOTE | 2016-10-01 12:39 | Pulmonology Progress Note ---
Assessment/Plan Problems: (1) Hypotension (2) Dyspnea (3) Cancer, hepatocellular (4) Ascites (5) ATN (acute tubular necrosis) (6) Coagulopathy (7) Anemia Assessment/Plan NS or Albumin to support BP pain management check ascitic fluid pain management Subjective ROS Limited/Unobtainable: No Interval Events: transferred to telemetry because of hypotension Constitutional: Reports: anorexia, fatigue HEENT: Repors: no symptoms Respiratory: Reports: no symptoms Cardiovascular: Reports: no symptoms Gastrointestinal/Abdominal: Reports: no symptoms Allergies: Coded Allergies: No Known Allergies (Verified , 03/16/11) Objective Last 24 Hour Vital Signs Date Time Temp Pulse Resp B/P Pulse Ox O2 Delivery O2 Flow Rate FiO2 10/01/16 11:29 97.3 108 20 89/61 93 Room Air 10/01/16 08:19 97.1 104 20 89/64 91 Room Air 10/01/16 08:00 101 10/01/16 07:14 97 Room Air 10/01/16 07:14 Room Air 10/01/16 06:00 96 93/65 10/01/16 04:00 96 10/01/16 04:00 93/65 10/01/16 04:00 97.0 98 20 97 Nasal Cannula 10/01/16 01:25 Room Air 10/01/16 01:25 Room Air 10/01/16 00:00 97 10/01/16 00:00 97.8 67 20 89/61 97 09/30/16 20:00 96.9 82 17 77/44 96 Room Air 09/30/16 19:30 101 18 100 Room Air 09/30/16 19:22 106 18 Room Air 09/30/16 19:20 96 18 96 Room Air 09/30/16 16:00 97.6 72 19 126/82 100 09/30/16 14:37 91 16 100 Room Air 09/30/16 13:29 84 20 95/56 09/30/16 13:20 89 16 Room Air 21 Intake and Output 09/30/16 10/01/16 19:00 07:00 Intake Total 400 ml 845 ml Output Total 350 ml Balance 400 ml 495 ml Intake Oral 350 ml 320 ml IV Total 50 ml 525 ml Output Urine Total 350 ml # Voids 2 # Bowel Movements 3 2 General Appearance: cachetic HEENT: normocephalic, atraumatic Respiratory/Chest: chest wall non-tender, lungs clear Cardiovascular: normal peripheral pulses, normal rate Abdomen: normal bowel sounds, soft, non tender Extremities: no cyanosis Skin: no ulcers Laboratory Tests 10/01/16 02:30: Urine Color Yellow, Urine Appearance Clear, Urine pH 5, Urine Specific [place] 1.015, Urine Protein 1+H, Urine Glucose (UA) Negative, Urine Ketones Negative, Urine Occult Blood 1+H, Urine Nitrite Negative, Urine Bilirubin Negative, Urine Urobilinogen Normal, Urine Leukocyte Esterase 1+H, Urine RBC 0-2H, Urine WBC 2-4 , Urine Squamous Epithelial Cells Occasional, Urine Bacteria Few, Urine Eosinophils None seen, Urine Osmolality [Pending], Urine Random Sodium < 10, Urine Random Chloride 20, Urine Creatinine 114.8, Urine Potassium Timed 14 10/01/16 04:35: White Blood Count 11.2H, Red Blood Count 3.12L, Hemoglobin 10.5L, Hematocrit 32.6L, Mean Corpuscular Volume 105H, Mean Corpuscular Hemoglobin 33.6H, Mean Corpuscular Hemoglobin Concent 32.1, Red Cell Distribution Width 14.8, Platelet Count 169, Mean Platelet Volume 9.1, Neutrophils (%) (Auto) , Lymphocytes (%) ( Auto) , Monocytes (%) (Auto) , Eosinophils (%) (Auto) , Basophils (%) (Auto) , Differential Total Cells Counted 100, Neutrophils % (Manual) 84H, Lymphocytes % (Manual) 5L, Monocytes % (Manual) 9, Eosinophils % (Manual) 0, Basophils % ( Manual) 0, Band Neutrophils 2, Platelet Estimate Adequate, Platelet Morphology Normal, Hypochromasia 1+, Anisocytosis 1+, Macrocytosis 1+, Sodium Level 134L, Potassium Level 4.0, Chloride Level 96L, Carbon Dioxide Level 14L, Anion Gap 24H , Blood Urea Nitrogen 86H, Creatinine 4.1H, Estimat Glomerular Filtration Rate , Glucose Level 119H, Plasma/Serum Osmolality [Pending], Uric Acid 11.6H, Calcium Level 8.1L, Phosphorus Level 7.0H, Magnesium Level 2.4, Total Bilirubin 2.5H, Direct Bilirubin 1.3H, Aspartate Amino Transf (AST/SGOT) 52H, Alanine Aminotransferase (ALT/SGPT) 26, Alkaline Phosphatase 239H, Total Creatine Kinase 28L, Total Protein 7.9, Albumin 2.4L, Globulin 5.5, Albumin/Globulin Ratio 0.4L, Thyroid Stimulating Hormone (TSH) 4.600H, Free Thyroxine 1.09, Free Triiodothyronine 1.3L, Cortisol [Pending] Current Medications Medications (Trade) Dose Ordered Sig/Garcia Route PRN Reason Start Time Stop Time Status Last Admin Dose Admin Acetaminophen (Tylenol) 650 mg Q6H PRN ORAL Mild Pain/Temp > 100.5 09/30/16 23:38 10/30/16 23:37 Acetaminophen/ Hydrocodone Bitart ([place] 5/325) 1 tab Q6H PRN ORAL Moderate Pain (Pain Scale 4-6) 09/30/16 23:39 10/07/16 23:38 10/01/16 04:25 Al Hydroxide/Mg Hydroxide (Mylanta II) 30 ml DAILYPRN PRN ORAL DYSPEPsia 09/30/16 23:38 10/30/16 23:37 Albuterol/ Ipratropium (DuoNeb 0.5-3(2.5)mg/3ml) 3 ml Q6HRT HHN 10/01/16 01:00 10/06/16 00:59 Dextrose (Dextrose 50%) STAT PRN IV Hypoglycemia 09/30/16 23:38 10/30/16 23:37 Docusate Sodium (Colace) 100 mg TWICE A DAY ORAL 10/01/16 09:00 10/31/16 08:59 Insulin Aspart (NovoLOG) BEFORE MEALS AND HS SUBQ 10/01/16 06:30 10/31/16 06:29 10/01/16 06:29 Magnesium Hydroxide (Mom) 30 ml DAILYPRN PRN ORAL Constipation 09/30/16 23:39 10/30/16 23:38 Midodrine (Pro-Amatine) 10 mg THREE TIMES A DAY ORAL 10/01/16 09:00 10/31/16 08:59 10/01/16 08:15 Propranolol HCl (Inderal) 10 mg Q8HR ORAL 10/01/16 06:00 10/31/16 05:59 Sodium Chloride (Sodium Chloride 1000ml bag) 1,000 ml @ 75 mls/hr [id number] IV 10/01/16 00:00 10/31/16 00:00 10/01/16 00:00 Tamsulosin HCl (Flomax) 0.4 mg BEDTIME ORAL 10/01/16 21:00 10/31/16 20:59 Zolpidem Tartrate (Ambien) 5 mg HSPRN PRN ORAL Insomnia 09/30/16 23:39 10/30/16 23:38 MONTEZ CAN Oct 01, 2016 12:39
--- NOTE | 2016-10-01 15:11 | General Progress Note ---
Assessment/Plan Assessment/Plan Assessment - multifocal HCC - Ascites - Cirrhosis - Renal failure - Poor Px Recommendations - PRN paracentesis - Agree with SNF - Code status Subjective Allergies: Coded Allergies: No Known Allergies (Verified , 03/16/11) Subjective Feels OK no new complaints Objective Last 24 Hour Vital Signs Date Time Temp Pulse Resp B/P Pulse Ox O2 Delivery O2 Flow Rate FiO2 10/01/16 13:38 93 18 100 Room Air 10/01/16 13:30 89 18 98 Room Air 10/01/16 12:00 91 10/01/16 11:29 97.3 108 20 89/61 93 Room Air 10/01/16 08:19 97.1 104 20 89/64 91 Room Air 10/01/16 08:00 101 10/01/16 07:14 97 Room Air 10/01/16 07:14 Room Air 10/01/16 06:00 96 93/65 10/01/16 04:00 96 10/01/16 04:00 93/65 10/01/16 04:00 97.0 98 20 97 Nasal Cannula 10/01/16 01:25 Room Air 10/01/16 01:25 Room Air 10/01/16 00:00 97 10/01/16 00:00 97.8 67 20 89/61 97 09/30/16 20:00 96.9 82 17 77/44 96 Room Air 09/30/16 19:30 101 18 100 Room Air 09/30/16 19:22 106 18 Room Air 09/30/16 19:20 96 18 96 Room Air 09/30/16 16:00 97.6 72 19 126/82 100 Intake and Output 09/30/16 10/01/16 19:00 07:00 Intake Total 400 ml 845 ml Output Total 350 ml Balance 400 ml 495 ml Intake Oral 350 ml 320 ml IV Total 50 ml 525 ml Output Urine Total 350 ml # Voids 2 # Bowel Movements 3 2 Laboratory Tests 10/01/16 02:30: Urine Color Yellow, Urine Appearance Clear, Urine pH 5, Urine Specific [place] 1.015, Urine Protein 1+H, Urine Glucose (UA) Negative, Urine Ketones Negative, Urine Occult Blood 1+H, Urine Nitrite Negative, Urine Bilirubin Negative, Urine Urobilinogen Normal, Urine Leukocyte Esterase 1+H, Urine RBC 0-2H, Urine WBC 2-4 , Urine Squamous Epithelial Cells Occasional, Urine Bacteria Few, Urine Eosinophils None seen, Urine Osmolality [Pending], Urine Random Sodium < 10, Urine Random Chloride 20, Urine Creatinine 114.8, Urine Potassium Timed 14 10/01/16 04:35: White Blood Count 11.2H, Red Blood Count 3.12L, Hemoglobin 10.5L, Hematocrit 32.6L, Mean Corpuscular Volume 105H, Mean Corpuscular Hemoglobin 33.6H, Mean Corpuscular Hemoglobin Concent 32.1, Red Cell Distribution Width 14.8, Platelet Count 169, Mean Platelet Volume 9.1, Neutrophils (%) (Auto) , Lymphocytes (%) ( Auto) , Monocytes (%) (Auto) , Eosinophils (%) (Auto) , Basophils (%) (Auto) , Differential Total Cells Counted 100, Neutrophils % (Manual) 84H, Lymphocytes % (Manual) 5L, Monocytes % (Manual) 9, Eosinophils % (Manual) 0, Basophils % ( Manual) 0, Band Neutrophils 2, Platelet Estimate Adequate, Platelet Morphology Normal, Hypochromasia 1+, Anisocytosis 1+, Macrocytosis 1+, Sodium Level 134L, Potassium Level 4.0, Chloride Level 96L, Carbon Dioxide Level 14L, Anion Gap 24H , Blood Urea Nitrogen 86H, Creatinine 4.1H, Estimat Glomerular Filtration Rate , Glucose Level 119H, Plasma/Serum Osmolality [Pending], Uric Acid 11.6H, Calcium Level 8.1L, Phosphorus Level 7.0H, Magnesium Level 2.4, Total Bilirubin 2.5H, Direct Bilirubin 1.3H, Aspartate Amino Transf (AST/SGOT) 52H, Alanine Aminotransferase (ALT/SGPT) 26, Alkaline Phosphatase 239H, Total Creatine Kinase 28L, Total Protein 7.9, Albumin 2.4L, Globulin 5.5, Albumin/Globulin Ratio 0.4L, Thyroid Stimulating Hormone (TSH) 4.600H, Free Thyroxine 1.09, Free Triiodothyronine 1.3L, Cortisol [Pending] Height (Feet): 5 Height (Inches): 4.00 Weight (Pounds): 150 Objective Debilitated NCAT supple CTA RRR Soft, NT no edema sleepy STEPHANIE PATHAK Oct 01, 2016 15:11
[2016-10-01 16:02] VITALS: BP 107/68
--- NOTE | 2016-10-01 16:55 | Nephrology Progress Note ---
Assessment/Plan Problem List: (1) Renal insufficiency Assessment: no change (2) Anemia (3) Cancer, hepatocellular (4) Ascites Assessment low Urine sodium C/W prerenal azotemia (doubt) vs hepatorenal syndrome (likely) ATN still a possibility Plan IVF NS follow BMP Discussed with RN May need HD if not hospice Will discuss with Dr Lockhart Subjective Subjective Pt was transfered to monitored bed for low BP Objective Objective Last 24 Hour Vital Signs Date Time Temp Pulse Resp B/P Pulse Ox O2 Delivery O2 Flow Rate FiO2 10/01/16 16:02 97.0 96 18 107/68 97 Room Air 10/01/16 13:38 93 18 100 Room Air 10/01/16 13:30 89 18 98 Room Air 10/01/16 12:00 91 10/01/16 11:29 97.3 108 20 89/61 93 Room Air 10/01/16 08:19 97.1 104 20 89/64 91 Room Air 10/01/16 08:00 101 10/01/16 07:14 97 Room Air 10/01/16 07:14 Room Air 10/01/16 06:00 96 93/65 10/01/16 04:00 96 10/01/16 04:00 93/65 10/01/16 04:00 97.0 98 20 97 Nasal Cannula 10/01/16 01:25 Room Air 10/01/16 01:25 Room Air 10/01/16 00:00 97 10/01/16 00:00 97.8 67 20 89/61 97 09/30/16 20:00 96.9 82 17 77/44 96 Room Air 09/30/16 19:30 101 18 100 Room Air 09/30/16 19:22 106 18 Room Air 09/30/16 19:20 96 18 96 Room Air Intake and Output 09/30/16 10/01/16 19:00 07:00 Intake Total 400 ml 845 ml Output Total 350 ml Balance 400 ml 495 ml Intake Oral 350 ml 320 ml IV Total 50 ml 525 ml Output Urine Total 350 ml # Voids 2 # Bowel Movements 3 2 Laboratory Tests 10/01/16 02:30: Urine Color Yellow, Urine Appearance Clear, Urine pH 5, Urine Specific [place] 1.015, Urine Protein 1+H, Urine Glucose (UA) Negative, Urine Ketones Negative, Urine Occult Blood 1+H, Urine Nitrite Negative, Urine Bilirubin Negative, Urine Urobilinogen Normal, Urine Leukocyte Esterase 1+H, Urine RBC 0-2H, Urine WBC 2-4 , Urine Squamous Epithelial Cells Occasional, Urine Bacteria Few, Urine Eosinophils None seen, Urine Osmolality [Pending], Urine Random Sodium < 10, Urine Random Chloride 20, Urine Creatinine 114.8, Urine Potassium Timed 14 10/01/16 04:35: White Blood Count 11.2H, Red Blood Count 3.12L, Hemoglobin 10.5L, Hematocrit 32.6L, Mean Corpuscular Volume 105H, Mean Corpuscular Hemoglobin 33.6H, Mean Corpuscular Hemoglobin Concent 32.1, Red Cell Distribution Width 14.8, Platelet Count 169, Mean Platelet Volume 9.1, Neutrophils (%) (Auto) , Lymphocytes (%) ( Auto) , Monocytes (%) (Auto) , Eosinophils (%) (Auto) , Basophils (%) (Auto) , Differential Total Cells Counted 100, Neutrophils % (Manual) 84H, Lymphocytes % (Manual) 5L, Monocytes % (Manual) 9, Eosinophils % (Manual) 0, Basophils % ( Manual) 0, Band Neutrophils 2, Platelet Estimate Adequate, Platelet Morphology Normal, Hypochromasia 1+, Anisocytosis 1+, Macrocytosis 1+, Sodium Level 134L, Potassium Level 4.0, Chloride Level 96L, Carbon Dioxide Level 14L, Anion Gap 24H , Blood Urea Nitrogen 86H, Creatinine 4.1H, Estimat Glomerular Filtration Rate , Glucose Level 119H, Plasma/Serum Osmolality [Pending], Uric Acid 11.6H, Calcium Level 8.1L, Phosphorus Level 7.0H, Magnesium Level 2.4, Total Bilirubin 2.5H, Direct Bilirubin 1.3H, Aspartate Amino Transf (AST/SGOT) 52H, Alanine Aminotransferase (ALT/SGPT) 26, Alkaline Phosphatase 239H, Total Creatine Kinase 28L, Total Protein 7.9, Albumin 2.4L, Globulin 5.5, Albumin/Globulin Ratio 0.4L, Thyroid Stimulating Hormone (TSH) 4.600H, Free Thyroxine 1.09, Free Triiodothyronine 1.3L, Cortisol [Pending] Height (Feet): 5 Height (Inches): 4.00 Weight (Pounds): 150 Cardiovascular: normal rate Respiratory/Chest: lungs clear Extremities: trace edema RAHBAN,MASON Oct 01, 2016 16:55
[2016-10-01] MEDS ORDERED: Tubing IV Secondary IV ONE (16:59)
[2016-10-01] MEDS ORDERED: NS 550ML IV ONE (16:59)
[2016-10-01] MEDS ORDERED: NS 275ml ONE (16:59)
[2016-10-01] MEDS: Calcium Acetate 667mg Tab ORAL SCH (17:43)
[2016-10-01 20:00] VITALS: BP 100/71
[2016-10-01] MEDS ORDERED: Tamsulosin 0.4mg cap ORAL SCH (21:00)
[2016-10-02 00:47] VITALS: BP 141/63
[2016-10-02] MEDS: DuoNeb 0.5-3(2.5)mg/3ml neb HHN SCH ×3 (01:00→13:23)
[2016-10-02 04:01] VITALS: BP 118/42
[2016-10-02] MEDS: Calcium Acetate 667mg Tab ORAL SCH ×4 (06:26→16:30)
[2016-10-02] MEDS: NovoLOG Insulin Flexpen SUBQ SCH ×3 (06:50→16:30)
[2016-10-02 07:28] LABS: ALANINE AMINOTRANSFERASE 26 U/L (3-41); ALBUMIN/GLOBULIN RATIO 0.4 (1.0-2.7); ANION GAP 26 (5-15); ASPARTATE AMINO TRANSFERASE 50 U/L (5-40); CALCIUM 8.1 mg/dL (8.6-10.2); CARBON DIOXIDE 11 mEQ/L (20-30); CHLORIDE 100 mEQ/L (98-107); CREATININE 4.4 mg/dL (0.7-1.2); HEMOLYSIS 10; MAGNESIUM 2.4 mg/dL (1.7-2.5); PHOSPHORUS 7.6 mg/dL (2.5-4.8); POTASSIUM 4.4 mEQ/L (3.4-4.9); SODIUM 137 mEQ/L (135-145); TOTAL PROTEIN 7.7 g/dL (6.6-8.7)
[2016-10-02 07:29] LABS: ABG ALLEN TEST POSITIVE; ABG BASE EXCESS -11.9; ABG PCO2 26.1 mmHg (35.0-45.0)
[2016-10-02 07:39] LABS: BASOPHILS % (AUTO) 1.1 % (0.0-2.0); LYMPHOCYTES % (AUTO) 13.1 % (20.0-45.0); MEAN CORPUSCULAR HGB CONC 32.1 G/DL (32.0-36.0); MEAN CORPUSCULAR VOLUME 106 FL (80-99); MEAN PLATELET VOLUME 7.9 FL (6.5-10.1); MONOCYTES % (AUTO) 6.4 % (1.0-10.0); NEUTROPHILS % (AUTO) 79.4 % (45.0-75.0); PLATELET COUNT 139 K/UL (150-450); RED BLOOD COUNT 3.12 M/UL (4.70-6.10); RED CELL DISTRIBUTION WIDTH 14.9 % (11.6-14.8); WHITE BLOOD COUNT 10.5 K/UL (4.8-10.8)
[2016-10-02 07:57] LABS: BILIRUBIN,DIRECT 1.3 mg/dL (0.1-0.3)
[2016-10-02 08:00] VITALS: BP 105/62
[2016-10-02 08:00] LABS: INR 1.2 (0.9-1.1); PROTHROMBIN TIME 12.5 SEC (9.30-11.50)
[2016-10-02 08:21] LABS: BASOPHILS % (AUTO) 0.7 % (0.0-2.0); EOSINOPHILS % (AUTO) 0.1 % (0.0-3.0); LYMPHOCYTES % (AUTO) 15.7 % (20.0-45.0); MEAN CORPUSCULAR HEMOGLOBIN 33.9 PG (27.0-31.0); MEAN CORPUSCULAR HGB CONC 32.1 G/DL (32.0-36.0); MEAN CORPUSCULAR VOLUME 106 FL (80-99); MEAN PLATELET VOLUME 7.8 FL (6.5-10.1); MONOCYTES % (AUTO) 6.9 % (1.0-10.0); NEUTROPHILS % (AUTO) 76.6 % (45.0-75.0); PLATELET COUNT 146 K/UL (150-450); RED BLOOD COUNT 3.01 M/UL (4.70-6.10); RED CELL DISTRIBUTION WIDTH 15.1 % (11.6-14.8); WHITE BLOOD COUNT 11.4 K/UL (4.8-10.8)
[2016-10-02 08:35] LABS: ASPARTATE AMINO TRANSFERASE 50 U/L (5-40); CALCIUM 8.3 mg/dL (8.6-10.2); CARBON DIOXIDE 14 mEQ/L (20-30); CREATININE 4.7 mg/dL (0.7-1.2)
[2016-10-02 08:36] LABS: ALANINE AMINOTRANSFERASE 27 U/L (3-41); ALBUMIN/GLOBULIN RATIO 0.4 (1.0-2.7); ANION GAP 24 (5-15); CHLORIDE 100 mEQ/L (98-107); HEMOLYSIS 2; POTASSIUM 4.5 mEQ/L (3.4-4.9); SODIUM 138 mEQ/L (135-145); TOTAL PROTEIN 7.8 g/dL (6.6-8.7)
[2016-10-02 08:37] LABS: AMMONIA 222 umol/L (16-60)
[2016-10-02 08:46] LABS: BILIRUBIN,DIRECT 1.5 mg/dL (0.1-0.3)
[2016-10-02] MEDS: Midodrine 10mg tab ORAL SCH ×3 (09:20→17:38)
[2016-10-02] MEDS: Docusate 100mg cap ORAL SCH ×2 (09:20→17:38)
[2016-10-02] MEDS: Lactulose 20gm/30ml UDC ORAL SCH ×3 (09:43→17:38)
[2016-10-02] MEDS ORDERED: Lactulose 10gm/15ml UDC ORAL SCH (10:00)
[2016-10-02] MEDS ORDERED: Rifaximin 550mg tab ORAL SCH (10:00)
--- NOTE | 2016-10-02 10:52 | Diagnostic Imaging Report ---
RENAL ULTRASOUND HISTORY: Acute renal failure. TECHNIQUE: Grayscale ultrasound imaging of the kidneys and bladder was performed. COMPARISON: Abdomen/pelvis CT dated 08/08/16. FINDINGS: The right kidney measures 9.2 x 5.2 x 4.5 cm in length. The left kidney measures 11.2 x 5.4 x 3.4 cm in length. Probable 1.2 cm cyst is seen in the left kidney. A 7 mm echogenic focus without posterior acoustic shadowing in the lower left kidney may represent a nonobstructing stone or artifact. The prostate gland is moderately enlarged, indenting the floor of the urinary bladder. The urinary bladder exhibits irregular contours suggesting sequela of bladder outlet obstruction. Small bladder wall diverticula are not excluded. Ascites is identified. The partially imaged liver exhibits a nodular contour suggesting cirrhosis. IMPRESSION: 1. Probable 1.2 cm left renal cyst. Suspected 7 mm nonobstructing left renal stone versus artifact. No hydronephrosis. 2. Moderately enlarged prostate gland indenting the floor of the urinary bladder. Irregular contours of the urinary bladder wall may represent the sequela of bladder outlet obstruction. Small bladder diverticulum may be present. 3. Ascites and hepatic cirrhosis. Please refer to the abdomen/pelvis CT report of 08/08/16 for description of significant findings.
[2016-10-02 11:17] VITALS: BP 98/57
--- NOTE | 2016-10-02 12:01 | Nephrology Progress Note ---
Assessment/Plan Problem List: (1) Renal insufficiency Assessment: slightly worse (2) Anemia (3) Cancer, hepatocellular (4) Ascites (5) Hepatic encephalopathy Assessment low Urine sodium C/W prerenal azotemia (doubt) vs hepatorenal syndrome (likely) ATN still a possibility Plan IVF NS Increase Lactulose? follow BMP discussed with Dr Lockhart Subjective Subjective lethargic Objective Objective Last 24 Hour Vital Signs Date Time Temp Pulse Resp B/P Pulse Ox O2 Delivery O2 Flow Rate FiO2 10/02/16 11:17 96.1 98 20 98/57 97 Nasal Cannula 2.0 10/02/16 08:00 96.3 75 20 105/62 97 Nasal Cannula 4.0 10/02/16 08:00 95 10/02/16 07:30 115 21 98 Nasal Cannula 4.0 36 10/02/16 07:16 114 19 96 Nasal Cannula 4.0 36 10/02/16 07:16 36 10/02/16 04:01 98.5 102 20 118/42 97 Room Air 10/02/16 04:00 96 10/02/16 01:36 Room Air 10/02/16 01:35 Room Air 10/02/16 00:47 97.8 108 19 141/63 96 Room Air 10/02/16 00:00 103 10/01/16 20:00 97.0 90 18 100/71 97 Room Air 10/01/16 20:00 95 10/01/16 19:41 106 18 100 Room Air 10/01/16 19:34 104 18 98 Room Air 10/01/16 16:02 97.0 96 18 107/68 97 Room Air 10/01/16 16:00 114 10/01/16 13:38 93 18 100 Room Air 10/01/16 13:30 89 18 98 Room Air 10/01/16 12:00 91 Intake and Output 10/01/16 10/02/16 19:00 07:00 Intake Total 900 ml 835 ml Output Total 75 ml 350 ml Balance 825 ml 485 ml IV Total 900 ml 835 ml Output Urine Total 75 ml 350 ml # Bowel Movements 1 5 Laboratory Tests 10/02/16 06:00: White Blood Count 10.5, Red Blood Count 3.12L, Hemoglobin 10.6L, Hematocrit 33.0L, Mean Corpuscular Volume 106H, Mean Corpuscular Hemoglobin 34.0H, Mean Corpuscular Hemoglobin Concent 32.1, Red Cell Distribution Width 14.9H, Platelet Count 139L, Mean Platelet Volume 7.9, Neutrophils (%) (Auto) 79.4H, Lymphocytes (%) (Auto) 13.1L, Monocytes (%) (Auto) 6.4, Eosinophils (%) (Auto) 0.0, Basophils (%) (Auto) 1.1, Prothrombin Time 12.5H, Prothromb Time International Ratio 1.2H, Activated Partial Thromboplast Time 36H, Sodium Level 137, Potassium Level 4.4, Chloride Level 100, Carbon Dioxide Level 11L, Anion Gap 26H, Blood Urea Nitrogen 91H, Creatinine 4.4H, Estimat Glomerular Filtration Rate , Glucose Level 128H, Calcium Level 8.1L, Phosphorus Level 7.6H , Magnesium Level 2.4, Total Bilirubin 2.3H, Direct Bilirubin 1.3H, Aspartate Amino Transf (AST/SGOT) 50H, Alanine Aminotransferase (ALT/SGPT) 26, Alkaline Phosphatase 247H, Total Protein 7.7, Albumin 2.2L, Globulin 5.5, Albumin/ Globulin Ratio 0.4L 10/02/16 07:04: Arterial Blood pH 7.309L, Arterial Blood Partial Pressure CO2 26.1L, Arterial Blood Partial Pressure O2 97.3, Arterial Blood HCO3 12.8L, Arterial Blood Oxygen Saturation 96.4, Arterial Blood Base Excess -11.9, Augustus Test Positive 10/02/16 07:40: White Blood Count 11.4H, Red Blood Count 3.01L, Hemoglobin 10.2L, Hematocrit 31.8L, Mean Corpuscular Volume 106H, Mean Corpuscular Hemoglobin 33.9H, Mean Corpuscular Hemoglobin Concent 32.1, Red Cell Distribution Width 15.1H, Platelet Count 146L, Mean Platelet Volume 7.8, Neutrophils (%) (Auto) 76.6H, Lymphocytes (%) (Auto) 15.7L, Monocytes (%) (Auto) 6.9, Eosinophils (%) (Auto) 0.1, Basophils (%) (Auto) 0.7, Sodium Level 138, Potassium Level 4.5, Chloride Level 100, Carbon Dioxide Level 14L, Anion Gap 24H, Blood Urea Nitrogen 94H, Creatinine 4.7H, Estimat Glomerular Filtration Rate , Glucose Level 129H, Calcium Level 8.3L, Total Bilirubin 2.5H, Direct Bilirubin 1.5H, Aspartate Amino Transf (AST/SGOT) 50H, Alanine Aminotransferase (ALT/SGPT) 27, Alkaline Phosphatase 249H, Total Protein 7.8, Albumin 2.3L, Globulin 5.5, Albumin/ Globulin Ratio 0.4L, Ammonia 222H Height (Feet): 5 Height (Inches): 4.00 Weight (Pounds): 150 Cardiovascular: normal rate Respiratory/Chest: lungs clear Extremities: other - no edema MASON REECE Oct 02, 2016 12:01
--- NOTE | 2016-10-02 12:33 | GI Progress Note ---
Assessment/Plan Problems: (1) Hepatic encephalopathy ICD Codes: K72.90 - Hepatic failure, unspecified without coma SNOMED: 56056901 (2) Anemia ICD Codes: D64.9 - Anemia, unspecified SNOMED: 339690482 (3) Cancer, hepatocellular ICD Codes: C22.0 - Liver cell carcinoma SNOMED: 96971278, 059149164, 816027503 (4) Ascites ICD Codes: R18.8 - Other ascites SNOMED: 460465031 (5) Liver masses ICD Codes: R16.0 - Hepatomegaly, not elsewhere classified SNOMED: 428811956 (6) Portal hypertension ICD Codes: K76.6 - Portal hypertension SNOMED: 84544108 (7) Cirrhosis, alcoholic ICD Codes: K70.30 - Alcoholic cirrhosis of liver without ascites SNOMED: 486922514, 837585647 (8) Hemorrhoids ICD Codes: K64.9 - Unspecified hemorrhoids SNOMED: 31733856 Status: not improved Status Narrative Discussed with Dr. Rivera. Assessment/Plan Assessment - multifocal HCC - Ascites - Cirrhosis - Renal failure - Poor Px - Elevated ammonia levels >> 222 Recommendations - lactulose + xifaxin - s/p paracentesis, prn - Agree with SNF - Code status - fu labs Subjective Subjective limited Objective Last 24 Hour Vital Signs Date Time Temp Pulse Resp B/P Pulse Ox O2 Delivery O2 Flow Rate FiO2 10/02/16 11:17 96.1 98 20 98/57 97 Nasal Cannula 2.0 10/02/16 08:00 96.3 75 20 105/62 97 Nasal Cannula 4.0 10/02/16 08:00 95 10/02/16 07:30 115 21 98 Nasal Cannula 4.0 36 10/02/16 07:16 114 19 96 Nasal Cannula 4.0 36 10/02/16 07:16 36 10/02/16 04:01 98.5 102 20 118/42 97 Room Air 10/02/16 04:00 96 10/02/16 01:36 Room Air 10/02/16 01:35 Room Air 10/02/16 00:47 97.8 108 19 141/63 96 Room Air 10/02/16 00:00 103 10/01/16 20:00 97.0 90 18 100/71 97 Room Air 10/01/16 20:00 95 10/01/16 19:41 106 18 100 Room Air 10/01/16 19:34 104 18 98 Room Air 10/01/16 16:02 97.0 96 18 107/68 97 Room Air 10/01/16 16:00 114 10/01/16 13:38 93 18 100 Room Air 10/01/16 13:30 89 18 98 Room Air Intake and Output 10/01/16 10/02/16 19:00 07:00 Intake Total 900 ml 835 ml Output Total 75 ml 350 ml Balance 825 ml 485 ml IV Total 900 ml 835 ml Output Urine Total 75 ml 350 ml # Bowel Movements 1 5 Laboratory Tests Test 10/02/16 06:00 10/02/16 07:04 10/02/16 07:40 White Blood Count 10.5 K/UL (4.8-10.8) 11.4 K/UL (4.8-10.8) H Red Blood Count 3.12 M/UL (4.70-6.10) L 3.01 M/UL (4.70-6.10) L Hemoglobin 10.6 G/DL (14.2-18.0) L 10.2 G/DL (14.2-18.0) L Hematocrit 33.0 % (42.0-52.0) L 31.8 % (42.0-52.0) L Mean Corpuscular Volume 106 FL (80-99) H 106 FL (80-99) H Mean Corpuscular Hemoglobin 34.0 PG (27.0-31.0) H 33.9 PG (27.0-31.0) H Mean Corpuscular Hemoglobin Concent 32.1 G/DL (32.0-36.0) 32.1 G/DL (32.0-36.0) Red Cell Distribution Width 14.9 % (11.6-14.8) H 15.1 % (11.6-14.8) H Platelet Count 139 K/UL (150-450) L 146 K/UL (150-450) L Mean Platelet Volume 7.9 FL (6.5-10.1) 7.8 FL (6.5-10.1) Neutrophils (%) (Auto) 79.4 % (45.0-75.0) H 76.6 % (45.0-75.0) H Lymphocytes (%) (Auto) 13.1 % (20.0-45.0) L 15.7 % (20.0-45.0) L Monocytes (%) (Auto) 6.4 % (1.0-10.0) 6.9 % (1.0-10.0) Eosinophils (%) (Auto) 0.0 % (0.0-3.0) 0.1 % (0.0-3.0) Basophils (%) (Auto) 1.1 % (0.0-2.0) 0.7 % (0.0-2.0) Prothrombin Time 12.5 SEC (9.30-11.50) H Prothromb Time International Ratio 1.2 (0.9-1.1) H Activated Partial Thromboplast Time 36 SEC (23-33) H Sodium Level 137 mEQ/L (135-145) 138 mEQ/L (135-145) Potassium Level 4.4 mEQ/L (3.4-4.9) 4.5 mEQ/L (3.4-4.9) Chloride Level 100 mEQ/L (98-107) 100 mEQ/L (98-107) Carbon Dioxide Level 11 mEQ/L (20-30) L 14 mEQ/L (20-30) L Anion Gap 26 (5-15) H 24 (5-15) H Blood Urea Nitrogen 91 mg/dL (7-23) H 94 mg/dL (7-23) H Creatinine 4.4 mg/dL (0.7-1.2) H 4.7 mg/dL (0.7-1.2) H Estimat Glomerular Filtration Rate mL/min (>60) mL/min (>60) Glucose Level 128 mg/dL (74-106) H 129 mg/dL (74-106) H Calcium Level 8.1 mg/dL (8.6-10.2) L 8.3 mg/dL (8.6-10.2) L Phosphorus Level 7.6 mg/dL (2.5-4.8) H Magnesium Level 2.4 mg/dL (1.7-2.5) Total Bilirubin 2.3 mg/dL (0.0-1.2) H 2.5 mg/dL (0.0-1.2) H Direct Bilirubin 1.3 mg/dL (0.1-0.3) H 1.5 mg/dL (0.1-0.3) H Aspartate Amino Transf (AST/SGOT) 50 U/L (5-40) H 50 U/L (5-40) H Alanine Aminotransferase (ALT/SGPT) 26 U/L (3-41) 27 U/L (3-41) Alkaline Phosphatase 247 U/L (40-129) H 249 U/L (40-129) H Total Protein 7.7 g/dL (6.6-8.7) 7.8 g/dL (6.6-8.7) Albumin 2.2 g/dL (3.5-5.2) L 2.3 g/dL (3.5-5.2) L Globulin 5.5 g/dL 5.5 g/dL Albumin/Globulin Ratio 0.4 (1.0-2.7) L 0.4 (1.0-2.7) L Arterial Blood pH 7.309 (7.350-7.450) Arterial Blood Partial Pressure CO2 26.1 mmHg (35.0-45.0) L Arterial Blood Partial Pressure O2 97.3 mmHg (75.0-100.0) Arterial Blood HCO3 12.8 mmol/L (22.0-26.0) L Arterial Blood Oxygen Saturation 96.4 % (92.0-98.0) Arterial Blood Base Excess -11.9 Augustus Test Positive Ammonia 222 umol/L (16-60) H Microbiology Date/Time Source Procedure Growth Status 10/01/16 14:10 Stool Clostridium difficile Toxin Assay - Final Complete Height (Feet): 5 Height (Inches): 4.00 Weight (Pounds): 150 General Appearance: no apparent distress, confused Cardiovascular: normal rate Abdominal Exam: ascites Evelyn Kim N.P. Oct 02, 2016 12:33
--- NOTE | 2016-10-02 13:14 | Pulmonology Progress Note ---
Assessment/Plan Problems: (1) Hypotension (2) Dyspnea (3) Cancer, hepatocellular (4) Ascites (5) ATN (acute tubular necrosis) (6) Coagulopathy (7) Anemia Assessment/Plan NS or Albumin to support BP pain management check ascitic fluid pain management titrate fio2 to sat of 92% best approach is comfort care at this point Subjective ROS Limited/Unobtainable: No Interval Events: got an NG tube Allergies: Coded Allergies: No Known Allergies (Verified , 03/16/11) Objective Last 24 Hour Vital Signs Date Time Temp Pulse Resp B/P Pulse Ox O2 Delivery O2 Flow Rate FiO2 10/02/16 11:17 96.1 98 20 98/57 97 Nasal Cannula 2.0 10/02/16 08:00 96.3 75 20 105/62 97 Nasal Cannula 4.0 10/02/16 08:00 95 10/02/16 07:30 115 21 98 Nasal Cannula 4.0 36 10/02/16 07:16 114 19 96 Nasal Cannula 4.0 36 10/02/16 07:16 36 10/02/16 04:01 98.5 102 20 118/42 97 Room Air 10/02/16 04:00 96 10/02/16 01:36 Room Air 10/02/16 01:35 Room Air 10/02/16 00:47 97.8 108 19 141/63 96 Room Air 10/02/16 00:00 103 10/01/16 20:00 97.0 90 18 100/71 97 Room Air 10/01/16 20:00 95 10/01/16 19:41 106 18 100 Room Air 10/01/16 19:34 104 18 98 Room Air 10/01/16 16:02 97.0 96 18 107/68 97 Room Air 10/01/16 16:00 114 10/01/16 13:38 93 18 100 Room Air 10/01/16 13:30 89 18 98 Room Air Intake and Output 10/01/16 10/02/16 19:00 07:00 Intake Total 900 ml 835 ml Output Total 75 ml 350 ml Balance 825 ml 485 ml IV Total 900 ml 835 ml Output Urine Total 75 ml 350 ml # Bowel Movements 1 5 General Appearance: cachetic HEENT: normocephalic, atraumatic, PERRL Respiratory/Chest: chest wall non-tender, lungs clear Cardiovascular: normal peripheral pulses, regular rhythm Abdomen: normal bowel sounds, soft, non tender Extremities: no cyanosis Skin: no rash, no ulcers Neurologic/Psychiatric: credit representative II-XII grossly normal Microbiology Date/Time Source Procedure Growth Status 10/01/16 14:10 Stool Clostridium difficile Toxin Assay - Final Complete 10/01/16 02:30 Urine,Clean Catch Urine Culture - Preliminary NO GROWTH AFTER 24 HOURS Resulted Laboratory Tests 10/02/16 06:00: White Blood Count 10.5, Red Blood Count 3.12L, Hemoglobin 10.6L, Hematocrit 33.0L, Mean Corpuscular Volume 106H, Mean Corpuscular Hemoglobin 34.0H, Mean Corpuscular Hemoglobin Concent 32.1, Red Cell Distribution Width 14.9H, Platelet Count 139L, Mean Platelet Volume 7.9, Neutrophils (%) (Auto) 79.4H, Lymphocytes (%) (Auto) 13.1L, Monocytes (%) (Auto) 6.4, Eosinophils (%) (Auto) 0.0, Basophils (%) (Auto) 1.1, Prothrombin Time 12.5H, Prothromb Time International Ratio 1.2H, Activated Partial Thromboplast Time 36H, Sodium Level 137, Potassium Level 4.4, Chloride Level 100, Carbon Dioxide Level 11L, Anion Gap 26H, Blood Urea Nitrogen 91H, Creatinine 4.4H, Estimat Glomerular Filtration Rate , Glucose Level 128H, Calcium Level 8.1L, Phosphorus Level 7.6H , Magnesium Level 2.4, Total Bilirubin 2.3H, Direct Bilirubin 1.3H, Aspartate Amino Transf (AST/SGOT) 50H, Alanine Aminotransferase (ALT/SGPT) 26, Alkaline Phosphatase 247H, Total Protein 7.7, Albumin 2.2L, Globulin 5.5, Albumin/ Globulin Ratio 0.4L 10/02/16 07:04: Arterial Blood pH 7.309L, Arterial Blood Partial Pressure CO2 26.1L, Arterial Blood Partial Pressure O2 97.3, Arterial Blood HCO3 12.8L, Arterial Blood Oxygen Saturation 96.4, Arterial Blood Base Excess -11.9, Augustus Test Positive 10/02/16 07:40: White Blood Count 11.4H, Red Blood Count 3.01L, Hemoglobin 10.2L, Hematocrit 31.8L, Mean Corpuscular Volume 106H, Mean Corpuscular Hemoglobin 33.9H, Mean Corpuscular Hemoglobin Concent 32.1, Red Cell Distribution Width 15.1H, Platelet Count 146L, Mean Platelet Volume 7.8, Neutrophils (%) (Auto) 76.6H, Lymphocytes (%) (Auto) 15.7L, Monocytes (%) (Auto) 6.9, Eosinophils (%) (Auto) 0.1, Basophils (%) (Auto) 0.7, Sodium Level 138, Potassium Level 4.5, Chloride Level 100, Carbon Dioxide Level 14L, Anion Gap 24H, Blood Urea Nitrogen 94H, Creatinine 4.7H, Estimat Glomerular Filtration Rate , Glucose Level 129H, Calcium Level 8.3L, Total Bilirubin 2.5H, Direct Bilirubin 1.5H, Aspartate Amino Transf (AST/SGOT) 50H, Alanine Aminotransferase (ALT/SGPT) 27, Alkaline Phosphatase 249H, Total Protein 7.8, Albumin 2.3L, Globulin 5.5, Albumin/ Globulin Ratio 0.4L, Ammonia 222H Current Medications Medications (Trade) Dose Ordered Sig/Garcia Route PRN Reason Start Time Stop Time Status Last Admin Dose Admin Acetaminophen (Tylenol) 650 mg Q6H PRN ORAL Mild Pain/Temp > 100.5 09/30/16 23:38 10/30/16 23:37 Acetaminophen/ Hydrocodone Bitart (Wilkinson 5/325) 1 tab Q6H PRN ORAL Moderate Pain (Pain Scale 4-6) 09/30/16 23:39 10/07/16 23:38 10/01/16 04:25 Al Hydroxide/Mg Hydroxide (Mylanta II) 30 ml DAILYPRN PRN ORAL DYSPEPsia 09/30/16 23:38 10/30/16 23:37 Albuterol/ Ipratropium (DuoNeb 0.5-3(2.5)mg/3ml) 3 ml Q6HRT HHN 10/01/16 01:00 10/06/16 00:59 10/02/16 07:16 Calcium Acetate (Phoslo) 667 mg TIAC ORAL 10/01/16 16:45 10/31/16 16:44 10/02/16 11:48 Dextrose (Dextrose 50%) STAT PRN IV Hypoglycemia 09/30/16 23:38 10/30/16 23:37 Docusate Sodium (Colace) 100 mg TWICE A DAY ORAL 10/01/16 09:00 10/31/16 08:59 10/02/16 09:20 Insulin Aspart (NovoLOG) BEFORE MEALS AND HS SUBQ 10/01/16 06:30 10/31/16 06:29 10/01/16 22:23 Lactulose (Cephulac) 30 gm THREE TIMES A DAY ORAL 10/02/16 10:00 11/01/16 09:59 10/02/16 12:53 Magnesium Hydroxide (Mom) 30 ml DAILYPRN PRN ORAL Constipation 09/30/16 23:39 10/30/16 23:38 Midodrine (Pro-Amatine) 10 mg THREE TIMES A DAY ORAL 10/01/16 09:00 10/31/16 08:59 10/02/16 12:53 Rifaximin (Xifaxan) 550 mg EVERY 12 HOURS ORAL 10/02/16 10:00 10/09/16 09:59 10/02/16 09:42 Sodium Chloride (Sodium Chloride 1000ml bag) 1,000 ml @ 75 mls/hr [id number] IV 10/01/16 00:00 10/31/16 00:00 10/02/16 02:48 Tamsulosin HCl (Flomax) 0.4 mg BEDTIME ORAL 10/01/16 21:00 10/31/16 20:59 10/01/16 22:24 Zolpidem Tartrate (Ambien) 5 mg HSPRN PRN ORAL Insomnia 09/30/16 23:39 10/30/16 23:38 MONTEZ CAN Oct 02, 2016 13:14
[2016-10-02] MEDS ORDERED: NS Irrig 1000ml ONE (14:21)
[2016-10-02 14:26] LABS: COMMENT,BODY FLUID PATHOLOGIST COMMENT
--- NOTE | 2016-10-02 17:21 | Diagnostic Imaging Report ---
Indication: Status post advancement of nasogastric tube Technique: One view of the chest Comparison: 07/09/17 Findings: Interim advancement of nasogastric tube, tip now in satisfactory position at the level gastric body antrum junction. There is increasing atelectasis and possibly patchy consolidation at the right lung base. Impression: Improved and now satisfactory position of nasogastric tube. Other findings as noted Patient's nurse notified previously
[2016-10-03 07:07] LABS: CORTISOL LC 33.4 ug/dL (.)
--- NOTE | 2016-10-03 12:57 | Diagnostic Imaging Report ---
Indication: Status post nasogastric tube placement Technique: Supine view of the upper abdomen and chest Comparison: 07/09/17 Findings: Interim placement of a nasogastric tube, tip projects at the level of the distal esophagus. The visualized bowel gas is unremarkable. The heart is mildly enlarged. 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 Impression: Malposition of nasogastric tube. Patient's nurse was notified previously of this Other findings as noted
--- NOTE | 2016-10-03 13:49 | Discharge Summary ---
Discharge Summary Hospital Course Date of Admission Sep 29, 2016 at 13:40 Date of Discharge Oct 02, 2016 at 15:30 Admitting Diagnosis ABDOMINAL PAIN , ACITIES HPI Livan Rosas is a 81 year old male who was admitted on Sep 29, 2016 at 13: 40 for Abdominal Pain,Acities Hospital Course dc summary dictated #[id number] Discharge Discharge Disposition Patient at 10/02/16 at 1530 Discharge Diagnoses: Cristian ([facility]),[place] Oct 03, 2016 13:49
--- NOTE | 2016-10-04 13:10 | Discharge Summary 2 SIG ---
DATE OF ADMISSION: 09/29/2016 DATE OF EXPIRATION: 10/02/2016 REASON FOR ADMISSION: This 81-year-old male with history of hepatocellular carcinoma was brought to emergency department with complaints of increased abdominal distention and shortness of breath. The patient's son was on the bedside and provided most of the information. He stated that the patient had fluid drained from the abdomen two to three months ago. He denied any vomiting or diarrhea. Denied fever or chills. He stated that the patient has a history of liver cancer. Both the patient and the son denied dark stool, denied any recent travel or trauma. Workup in the emergency room revealed hypothermia and hypotension. Pulse oximetry was stable on the room air. Physical examination revealed severe ascites. Ultrasound-guided paracentesis was ordered. Laboratory work revealed mild anemia of hemoglobin 10 and hematocrit 31.3; evidence of acute renal failure with BUN 83, creatinine 4, potassium 5, sodium 132, and anion gap of 22. Elevated total bilirubin 2.3 and direct bilirubin 1.4, AST elevated at 58, and alkaline phosphatase elevated at 255. The patient admitted for paracentesis and further management. ADMITTING DIAGNOSES: 1. Abdominal pain. 2. Dyspnea. 3. Ascites. 4. Hepatocellular carcinoma. 5. Acute renal failure/acute tubular necrosis. HOSPITAL COURSE: The patient admitted on telemetry floor. At that time, the patient was Full Code. Pulmonology, GI and Nephrology consults were requested in lieu of all the issues. Technology Architect ordered supplemental oxygen and pulmonary toilet as needed. Initial chest x-ray revealed no acute cardiopulmonary disease. No consolidation or pleural effusion. Followup chest x-ray revealed satisfactory position of NG tube when it was placed. Aircraft Life Support Fitter followed the patient closely. The patient was started on the IV fluids with normal saline in hope to improve renal parameters as well as the blood pressure. Renal parameters and electrolytes were closely monitored. Nephrotoxic were avoided. However, renal parameters only worsened by 10/02/2016, BUN was 94 and creatinine-4.7. Per salvage winder and inspector, it was most likely due to hepatorenal syndrome versus acute tubular necrosis. Aircraft Life Support Fitter concluded, that the patient most likely would need hemodialysis if continue to be Full Code. The patient was noted to have coagulopathy. Vitamin K given, INR down to 1.2. The patient was noted to have severely elevated ammonia with ammonia level- 222. The patient was on Lactulose and Xifaxan. GI followed. Venous duplex, bilateral lower extremities was negative. Renal ultrasound revealed ascites and hepatic cirrhosis, moderately enlarged prostate gland likely sequela of bladder outlet obstruction, as well as the renal cyst with a suspected 7 mm nonobstructing left renal stone versus artifact but no hydronephrosis. The patient's condition was deteriorated. Due to the poor prognosis and futility of treatment, all of the consultants recommended to change code status to DNR/DNI with comfort measures. Primary medical doctor spoke with the mark gonzalez who agreed with the DNR status. In the morning of 10/02/2016, code status was changed to the DNR/DNI. All medications and all treatments were still continued until the final family decision to stop all treatment. At that time renal parameters were getting worse. Creatinine up to 4.7 and bilirubin i slightly rising to 2.5 total and 1.5 direct. The patient was status post paracentesis on day of admission with 7 liters of ascitic fluid drained. Patient still was with shortness of breath and required supplemental oxygen via nasal cannula. The patient noted to have a low blood pressure despite IV fluids. IV fluids rate increased. Recommendation was given to help blood pressure support with albumin. Meantime, the patient was started on midodrine along with IV fluids. On the afternoon of 10/02/2016 at 1630 hours, the nurse found the patient without pulse and without breathing. Monitor demonstrated asystole. Cementer Helper and attending were notified by the nursing staff. Niece at the bedside. CAUSE OF : Cardiopulmonary arrest. FINAL DIAGNOSES: 1. Multifocal hepatocellular carcinoma. 2, Acute renal failure, possible acute tubular necrosis 3. Possible hepatorenal syndrome 4. Cardiac arrest 5. Acute hepatic encephalopathy 6. Ascites. 7. Status post paracentesis (with 7 liters of fluid removed). 8. Abdominal pain, likely due to malignancy. 9. Dysphagia. 10. Coagulopathy. 11. Anemia. 12. Hypotension. 13. Severe protein calorie malnutrition. Jeff Lockhart M.D. I have been assigned to dictate discharge summary on this account and I was not involved in the patient's management. La MatosLee shetty DR: DELISA JOB#: [id number] CC: LAWRENCE
--- NOTE | 2016-10-06 21:51 | Diagnostic Imaging Report ---
APPROVED REPORT CPT Code: 52866 Present Symptoms Lower Extremity Pain: Bilateral BILATERAL: Imaging reveals a patent deep venous system bilaterally. There is no evidence of thrombus within the femoral, popliteal or tibial segments. The greater saphenous veins are also within normal limits. Doppler indicates normal spontaneous flow within these segments.
--- NOTE | 2016-10-09 09:58 | Diagnostic Imaging Report ---
Indications: Ascites Technique: Ultrasound used to localize optimal puncture site. Sterile prepping and draping left lower quadrant. Local anesthesia with 1% lidocaine. Under real-time ultrasound guidance, puncture peritoneal space using paracentesis needle. Stylet removed. Catheter placed to vacuum bottle suction. Total 7.7 liters of fluid aspirated. Patient tolerated procedure well, without immediate complication. Findings: Followup sonography demonstrates complete resolution of peritoneal fluid. Impression: Successful ultrasound-guided paracentesis, yielding 7.7 liters of fluid
== END 2016-10-02 15:30 | disposition expired | DRG 435 ==
LOC: EDBEDREQ 12:38 → EMR 13:22 → EDBEDREQ 13:33 → 4E 13:40 → EDBEDREQ 14:14 → 2E 09-30 21:10
PROC: 0W9G3ZZ Drainage of Peritoneal Cavity, Percutaneous Approach (ICD-10-PCS; principal; 2016-09-29)
DX: C22.0 Liver cell carcinoma (principal); N17.0 Acute kidney failure with tubular necrosis; K76.7 Hepatorenal syndrome; K72.00 Acute and subacute hepatic failure without coma; E43 Unspecified severe protein-calorie malnutrition; R18.8 Other ascites; I95.9 Hypotension, unspecified; D68.4 Acquired coagulation factor deficiency; Z51.5 Encounter for palliative care; K74.69 Other cirrhosis of liver; I48.91 Unspecified atrial fibrillation; Z66 Do not resuscitate; N40.0 Benign prostatic hyperplasia without lower urinary tract symptoms; I10 Essential (primary) hypertension; R10.9 Unspecified abdominal pain; R13.10 Dysphagia, unspecified; D64.9 Anemia, unspecified; Z87.891 Personal history of nicotine dependence; E11.9 Type 2 diabetes mellitus without complications; K44.9 Diaphragmatic hernia without obstruction or gangrene
CPT/HCPCS: 36415; 36600; 71010; 74000; 76775; 76942; 80048; 80053; 81001; 82140; 82248; 82436; 82533; 82550; 82570; 82803; 82962; 83690; 83735; 83930; 83935; 84100; 84133; 84300; 84439; 84443; 84481; 84550; 85007; 85025; 85610; 85730; 87086; 87493; 88104; 89050; 89051; 93970; 94640; 94664; J1815; J7620